=== PATIENT | male | born 1935 | race Caucasian/White ===

== ENCOUNTER 2017-12-02 16:38 | Inpatient (IN) | payer MEDICARE, OTHER ==
[~2017-12-02 16:38] MED LIST: ISOVUE-370 76%-LOCM 1 ML ONE
[2017-12-02 17:58] LABS: #Basophils 0.1 thou/uL (0.0-0.2); #Lymphocytes 0.7 thou/uL (1.20-3.40); #Monocytes 1.6 thou/uL (0.11-0.59); #Neutrophils 12.3 thou/uL (1.40-6.50); %Basophils 0.5 % (0.0-1.0); %Eosinophils 0.1 % (0.0-10.0); %Lymphocytes 4.9 % (21.0-51.0); %Monocytes 10.6 % (0.0-10.0); %Neutrophils 83.9 % (42.0-75.0); Hemoglobin 16.6 g/dL (14.0-18.0); Mean Corpuscular Hemoglobin 28.5 pg (27.0-31.0); Mean Corpuscular Volume 86.4 fl (80.0-94.0); Mean Platelet Volume 9.1 fL (7.4-10.4); Platelet Count 127 thou/uL (130-400); RBC Distribution Width 14.3 % (11.5-14.5); Red Blood Cell (RBC) Count 5.83 mill/uL (4.70-6.10); White Blood Cell (WBC) Count 14.6 thou/uL (4.8-10.8)
[2017-12-02] MEDS ORDERED: Bisacodyl 10 MG SUPP PR PRN (18:13)
[2017-12-02] MEDS ORDERED: Milk Of Magnesia 30 ML UDCUP PO SCH (18:15)
[2017-12-02 18:28] LABS: ALT (SGPT) 19 U/L (8-55); AST (SGOT) 21 U/L (5-34); Albumin 4.5 g/dL (3.4-4.8); Alkaline Phosphatase 93 U/L (40-150); Anion Gap 12 mmol/L (10-20); BUN (Urea Nitrogen) 13 mg/dL (8.4-25.7); Bilirubin, Total 1.7 mg/dL (0.2-1.2); Calc. Creatinine Clearance 65 mL/min (70-130); Calcium 10.1 mg/dL (7.8-10.44); Carbon Dioxide 25 mmol/L (23-31); Chloride 98 mmol/L (98-107); Estimated GFR-MDRD 68; Globulin 3.3 g/dL (2.4-3.5); Glucose 219 mg/dL (83-110); Protein, Total 7.8 g/dL (5.8-8.1); Sodium 131 mmol/L (136-145)
[2017-12-02] MEDS: Sodium Chloride 0.9% 1,000 ML IV SCH (18:34)
[2017-12-02] MEDS ORDERED: Acetaminophen 325 MG TAB PO SCH ×2 (18:45→21:00)
[2017-12-02] MEDS ORDERED: Meropenem 1 GM in Sodium Chloride 0.9% 100 ML IVPB SCH ×2 (18:45→22:00)
[2017-12-02 19:03] LABS: Bacteria/HPF None Seen HPF (None Seen); Hyaline Casts/LPF 0-3 HYALINE CAST LPF (0-3 Hyaline); Squamous Epithelial 0-3 HPF (0-3); WBC/HPF 0-3 HPF (0-3)
[2017-12-02] MEDS ORDERED: Rivaroxaban 10 MG TAB PO SCH (19:30)
--- NOTE | 2017-12-02 23:49 | CT ---
ABDOMEN AND PELVIC CT SCAN WITH AND WITHOUT IV CONTRAST: 12/02/17 HISTORY: 82-year-old male with abdominal pain. There are prominent linear as well as some nodular parenchymal changes in both lower lobes, worse in the right base. These linear parenchymal changes have progressed when compared to a 02/24/[address] Possibilities include progressive chronic disease versus some subsegmental atelectasis. Small hia joaquin hernia. There is a fairly markedly distended thick walled gallbladder with pericholecystic fat st randing, evidence for possibly acute cholecystitis. Consider followup ultrasound and if needed, nucle ar medicine hepatobiliary scan for further assessment in that regard. Pancreas and spleen and adrenal glands are unremarkable. No renal calculus or acute obstruction. No CT evidence for acute appendi citis. Sigmoid colon diverticulosis without acute diverticulitis. IMPRESSION: Distended gallbladder with thick wall and pericholecystic fat stranding concerning for acute cholecys titis. Linear and nodular parenchymal changes in the lung base somewhat progressive from prior study of 02/24/15. Possibly progressive chronic disease versus some acute coexistent subsegmental atelectas is. Colonic diverticulosis without diverticulitis. Small fat containing inguinal hernia. Small hiatal hernia. Other findings as above. POS: [facility]
[2017-12-03] MEDS: Acetaminophen 325 MG TAB PO SCH ×6 (01:29→20:10)
[2017-12-03] MEDS: Meropenem 1 GM in Sodium Chloride 0.9% 100 ML IVPB SCH ×3 (01:30→17:28)
--- NOTE | 2017-12-03 07:52 | HP ---
Isa Hunt, CRISTINA-Julio Cesar dictating for Dr. Quirino Walsh. DATE OF ADMISSION: 12/02/2017 REASON FOR ADMISSION: Abdominal pain. HISTORY OF PRESENT ILLNESS: This is a pleasant elderly gentleman with a history of multiple medical problems to include chronic atrial fibrillation, hypertension, and back pain with epidural steroid in jection by Dr. Rosales in 2017. He presents to the clinic with a 3-day history of abdominal pain. He s tates he has not gone to the bathroom or had a bowel movement in the last 3 days. He notes he had a fever today of 101. Therefore, presented to the clinic for further evaluation and treatment. The patient denies any chest, arm, or back pain. He also denies any PND, orthopnea, or palpitations. Subsequently, the patient is being admitted for further evaluation and treatment. PAST MEDICAL HISTORY: 1. Asthma. 2. Heel spur. 3. Irritable bowel syndrome. 4. Chronic atrial fibrillation. 5. General anxiety disorder. 6. He has back pain with history of epidural steroid injection. ALLERGIES: None. MEDICATIONS: Xarelto 10 mg every day, diltiazem 360 mg every day. SOCIAL HISTORY: Patient does not smoke or drink alcohol. FAMILY HISTORY: Noncontributory. REVIEW of SYSTEM: GENERAL: Admits to weakness, fatigue, fever, and chills. HEENT: No diplopia, am aurosis fugax, tinnitus, sore throat, or hoarseness. Cardiovascular: No chest, arm, or back pain. Pulmonary: No PE, cough, or hemoptysis. GI: See history of present illness. Genitourinary: No dy suria, nocturia, oliguria, or polyuria. Endocrine: No polyphagia, polydipsia, or heat or cold intol erance. Musculoskeletal: Admits to arthralgias. No lymphadenopathy. Neurologic: No history of TI A or seizure. All systems are negative. PHYSICAL EXAMINATION: GENERAL: Pleasant gentleman who appears to be in no acute distress. VITAL SIGNS: Blood pressure 180/100, pulse 60, respirations 20, temperature 101. HEENT: Unremarkable. Normal oropharynx. PERRLA. Sclerae are clear, nonicteric. HE had bilateral arcus senilis. There is no xanthelasma. NECK: Supple with no increased JVP or carotid bruit. Carotid had good upstroke with no thyromegaly. COR: Irregularly irregular with variable first and second heart sounds. There is no murmur, S3, S4, or thrill. CHEST: Symmetrical. Clear to auscultation and percussion. ABDOMEN: , normoactive bowel sounds. EXTREMITIES: No edema or cyanosis. He had palpable pedal pulses. SKIN: There is no evidence of ulceration, lesion, or rash. NEUROLOGIC: He is awake and alert and oriented to person, place, and time. ASSESSMENT: 1. Abdominal pain. 2. He has chronic atrial fibrillation. 3. Hypertension. 4. Febrile illness. PLAN: 1. The patient will be admitted with IV fluids. 2. Beign meropenem prophylactically. 3. We will check a CT of the abdomen. 4. Resume home medications. 5. We will make n.p.o. for now. 6. We will give antipyretics. The patient verbalized understanding. All questions answered to his satisfaction.
[2017-12-03] MEDS: Sodium Chloride 0.9% 1,000 ML IV SCH (09:36)
--- NOTE | 2017-12-03 09:46 | PRG ---
DATE OF SERVICE: 12/03/2017 SUBJECTIVE: The patient had a good night. He finally went to the bathroom this morning. He states he feels a little bit better; however, he still has right upper quadrant tenderness. His CT scan of the abdomen came back and this demonstrated he had a distended gallbladder with thick wall and perich olecystic fat concerning for acute cholecystitis. He also had some diverticulosis without diverticul itis and small hiatal hernia. His white blood cell count this morning remains elevated at 14.6, however, he does not have a tempera ture, this morning it is 98.6. Sed rate was 101. PHYSICAL EXAMINATION: GENERAL: He is awake, alert, and oriented to person, place and time. VITAL SIGNS: Blood pressure 111/60, pulse 70, respiration rate 18, afebrile. NECK: Supple increased JVP or carotid bruit. Carotid had good upstroke, no thyromegaly. COR: Irregularly irregular with variable first and second heart sound. There is no murmur or S3. CHEST: Symmetrical. Clear to auscultation and percussion. ABDOMEN: Distended, right upper quadrant tenderness. He had normoactive bowel sounds. EXTREMITIES: No edema or cyanosis. Palpable pedal pulses. SKIN: There is no evidence of ulcers lesion, or rash. NEUROLOGIC: He is awake and alert and oriented to person, place, and time. ASSESSMENT: 1. Acute cholecystitis. 2. Constipation, improved. 3. Leukocytosis. 4. Atrial fibrillation, chronic. 5. Hypertension. PLAN: The patient will be left n.p.o. We will follow up with CBC in the morning. We will continue I V antibiotics and will ask Dr. Sanders to see the patient in consultation for surgical opinion. The rosibel ness verbalized understanding. All questions answered to satisfaction. This is Isa Hunt PA-C dictating for Dr. Quirino Walsh.
--- NOTE | 2017-12-03 12:08 | CON ---
GENERAL SURGERY CONSULTATION NOTE DATE OF CONSULTATION: 12/03/2017 CHIEF COMPLAINT: Right upper quadrant abdominal pain. HISTORY OF PRESENT ILLNESS: An 82-year-old male with a 3-day history of constipation and right upper quadrant pain. No nausea or vomiting. No previous episodes. He is on Xarelto and was given at las t night for atrial fibrillation. He has not had any solid food for 3 days. PAST MEDICAL HISTORY: COPD. He is on oxygen at night, sees Dr. Conklin; atrial fibrillation, sees Zabrina Mc; history of Guillain-Commodore. PAST SURGICAL HISTORY: None. MEDICATIONS: He is on Xarelto and diltiazem. ALLERGIES: He has no known drug allergies. SOCIAL HISTORY: He is . He is retired from the . He quit smoking. No alcohol. FAMILY HISTORY: Noncontributory. PHYSICAL EXAMINATION: VITAL SIGNS: Temperature 98.6, pulse 97 and blood pressure 111/68. GENERAL: He is awake and alert, in no apparent distress. HEENT: Unremarkable. LUNGS: Clear. HEART: Regular rate and rhythm. ABDOMEN: Very tender in the right upper quadrant with positive Newton's. No hernias, no palpable ma sses. EXTREMITIES: Unremarkable. LABORATORY AND X-RAY FINDINGS: White count is 14.6, hemoglobin and hematocrit 16 and 50, platelet co unt 127. Bilirubin is elevated at 1.7. He had a CT scan showing a distended gallbladder with thicke dominic wall and pericholecystic fluid. ASSESSMENT: Acute cholecystitis, on Xarelto with oxygen-dependent chronic obstructive pulmonary dise ase. PLAN: Cardiology clearance, pulmonary clearance. If clear, would proceed with laparoscopic cholecys tectomy tomorrow. If not clear, we will recommend tube drainage of his gallbladder in Radiology.
--- NOTE | 2017-12-03 12:48 | RAD ---
SINGLE VIEW CHEST: HISTORY: COPD. Preoperative radiograph. COMPARISON: 08/10/2013 FINDINGS: A single view of the chest shows a normal sized cardiomediastinal silhouette. There is no evidence o f consolidation or pleural effusion. There may be a small calcified granuloma projecting over the le ft lower lobe. IMPRESSION: No evidence of acute cardiopulmonary disease. POS: [facility]
[2017-12-03] MEDS: Ketorolac Tromethamine 30 MG/ML VIAL IVP PRN (12:59)
[2017-12-03] MEDS ORDERED: Rivaroxaban 10 MG TAB PO SCH (17:00)
[2017-12-03] MEDS: Mometasone/Formoterol 120 PUFF INHALER INH SCH (18:52)
--- NOTE | 2017-12-03 19:11 | CON ---
DATE OF CONSULTATION: 12/03/2017 CARDIOLOGY CONSULTATION PRIMARY SHANK CARRIER: Dr. Les Mc. REASON FOR CONSULTATION: Preoperative evaluation. HISTORY OF PRESENT ILLNESS: Mr. Mcmahon is a very pleasant 82-year-old white gentleman who comes to [facility] for right upper quadrant pain. He was evaluated and a CT of the abdomen showed he had a distended gallbladder with a thick wall with pericholecystic fat stranding concerning for acute jesus alberto cystitis. General Surgery was consulted. Dr. Sanders saw him and wants to take him to the OR to do a laparoscopic cholecystectomy. He has a history of atrial fibrillation and is on Xarelto for this, so Cardiology has been asked to do a preoperative evaluation to make sure his risk of surgery is as min imal as possible. Mr. Mcmahon denies any chest pain, tightness, pressure, no shortness of breath. Dc s only complaint is right upper quadrant pain which is most likely related to his acute cholecystitis . He tells me that just 2 days ago, he was mowing his lawn doing with a push mower and he has been w orking out on his exercise machine without any symptoms whatsoever. PAST MEDICAL HISTORY: 1. Bronchial asthma. 2. History of a heel spur. 3. Irritable bowel syndrome. 4. Atrial fibrillation. 5. General anxiety disorder. 6. Chronic back pain. OUTPATIENT MEDICATIONS: 1. Cardizem 360 mg. 2. Xarelto 20 mg at bedtime. 3. Myrbetriq. ALLERGIES: No known drug allergies. SOCIAL HISTORY: No alcohol, tobacco or drugs. FAMILY HISTORY: Noncontributory. REVIEW OF SYSTEMS: A 12 point review of systems was done and is all negative unless stated in the hi story of present illness. PHYSICAL EXAMINATION: VITAL SIGNS: Temperature 98.4, pulse 96, respiratory rate 16, satting 94% on 1.5 nasal cannula, bloo d pressure 122/73. GENERAL: Awake, alert, oriented x3, in no distress. HEENT: Normocephalic, atraumatic. NECK: Supple. LUNGS: Clear. CARDIOVASCULAR: S1, S2. No S3 or S4. Irregular heart rate in the 70s. ABDOMEN: Soft, otherwise. EXTREMITIES: No edema. SKIN: Warm and dry. LABORATORY WORK: Reviewed. White count of 14, hemoglobin of 16, hematocrit 50, platelet count 127. Chemistry with sodium 131, potassium 4.0, chloride of 98, carbon dioxide 25, anion gap of 12, BUN of 13, creatinine 1.04, GFR of 68. Lactic acid was normal. Calcium was 10.1, total bilirubin 1.7. T, ALT, alkaline phosphatase were normal. Albumin of 4.5. UA was unremarkable except for 11-20 rbc's. EKG was reviewed. Chest x-ray was reviewed. Most recent echocardiogram was in 07/2016. He had a normal LV function at 50-55%, moderate left atri al enlargement, moderate MR, sclerotic aortic valve moderate TR with mildly elevated right ventricula r systolic pressures and patient was in atrial fibrillation during the study. ASSESSMENT AND PLAN: 1. Acute cholecystitis. 2. Chronic atrial fibrillation. 3. Hypertension. 4. Preoperative evaluation. PLAN: 1. He would be intermediate risk for an intermediate risk procedure. At this time, he is asymptomat ic from any coronary standpoint. He has had stresses in the distant past that were negative at least 3-4 years ago, but has not had any symptoms suggestive of ischemia. His LV function was normal abou t a year and a half ago. 2. We will plan on repeating an echocardiogram and he should be able to undergo said procedure with the understood risk caveats. 3. He has been off Xarelto since last night. We usually recommend 24-48 hours off of Xarelto before any major surgery up to Dr. Sanders as far as the timing of the procedure. Thank you for letting us to participate in the care of your patient. Dr. Mc, his primary Card iology will follow up in the morning.
--- NOTE | 2017-12-03 23:13 | CON ---
DATE OF CONSULTATION: 12/03/2017 CONSULTING PHYSICIAN: Dr. Sanders. REASON FOR CONSULTATION: Preoperative pulmonary clearance. HISTORY OF PRESENT ILLNESS: Mr. Mcmahon is an 82-year-old male who came into the hospital last night with a 3-day history of right upper quadrant abdominal pain. He has been diagnosed with acute cholec ystitis. Unfortunately, he had a dose of Xarelto recently and his surgery needs to be held for sever al hours. I have been asked to see him for preoperative pulmonary clearance. I last saw the patient in the office in 2012. He has a history of chronic bronchitis. At that time, he had normal spirometry. He is currently using oxygen at night. He is using Symbicort twice daily and albuterol and ipratropium as needed. He states he is quite active. He mowed his lawn with a pu sh mower 2 days ago. He says he continues to perform all activities of daily living. He can climb a flight of stairs without having to stop. PAST MEDICAL HISTORY: 1. Chronic bronchitis. 2. Irritable bowel syndrome. 3. Chronic atrial fibrillation requiring anticoagulation with Xarelto. 4. General anxiety. 5. Chronic back pain. MEDICATIONS PRIOR TO ADMISSION: Xarelto, diltiazem, Symbicort, albuterol and ipratropium. SOCIAL HISTORY: Nonsmoker. Does not consume alcohol. FAMILY MEDICAL HISTORY: Unremarkable. REVIEW OF SYSTEMS: Twelve-point review of systems is otherwise negative. ALLERGIES: None. PHYSICAL EXAMINATION: VITAL SIGNS: Temperature 98.6, pulse 97, respirations 16, O2 sat 94%, blood pressure 111/68. GENERAL: He is awake, alert, in no distress. HEENT: Unremarkable. NECK: Without adenopathy, JVD, or bruits. LUNGS: Clear to auscultation without wheezing or rhonchi. CARDIOVASCULAR: S1, S2 regular without murmur, rub, or gallop. ABDOMEN: Right upper quadrant tenderness and positive Newton sign. Otherwise, soft and nontender. EXTREMITIES: No clubbing, cyanosis, or edema. NEUROLOGIC: Nonfocal. SKIN: Showed no lesions. LABORATORY DATA: White blood cell count 14.6, hematocrit 50, platelet count 127. Sodium 131, potass ium 4, chloride 98, CO2 of 25, BUN 13, creatinine 1.1, glucose 219, albumin 1.7. ASSESSMENT: Chronic bronchitis with normal spirometry in the past. He has some nocturnal hypoxemia, but certainly his functional status looks well enough to where he could undergo a laparoscopic jesus alberto cystectomy without much difficulty. RECOMMENDATIONS: Proceed with surgery tomorrow as planned. I will be glad to follow up perioperativ john. I will start him on bronchodilators. I will check a preoperative x-ray.
[2017-12-04] MEDS: Sodium Chloride 0.9% 1,000 ML IV SCH ×2 (02:10→10:59)
[2017-12-04] MEDS: Meropenem 1 GM in Sodium Chloride 0.9% 100 ML IVPB SCH ×2 (02:10→09:25)
[2017-12-04] MEDS: Acetaminophen 325 MG TAB PO SCH ×6 (03:55→20:30)
[2017-12-04] MEDS: Ketorolac Tromethamine 30 MG/ML VIAL IVP PRN (04:09)
[2017-12-04 05:49] LABS: #Lymphocytes 1.3 thou/uL (1.20-3.40); #Neutrophils 10.9 thou/uL (1.40-6.50); %Basophils 0.1 % (0.0-1.0); %Eosinophils 0.1 % (0.0-10.0); %Lymphocytes 9.6 % (21.0-51.0); %Monocytes 7.8 % (0.0-10.0); %Neutrophils 82.4 % (42.0-75.0); Hemoglobin 14.4 g/dL (14.0-18.0); Mean Corpuscular Hemoglobin 28.1 pg (27.0-31.0); Mean Corpuscular Volume 87.9 fl (80.0-94.0); Mean Platelet Volume 9.4 fL (7.4-10.4); Platelet Count 118 thou/uL (130-400); RBC Distribution Width 14.1 % (11.5-14.5); Red Blood Cell (RBC) Count 5.12 mill/uL (4.70-6.10); White Blood Cell (WBC) Count 13.2 thou/uL (4.8-10.8)
[2017-12-04] MEDS: Mometasone/Formoterol 120 PUFF INHALER INH SCH ×2 (07:00→19:07)
--- NOTE | 2017-12-04 08:17 | PRG ---
DATE OF SERVICE: 12/04/2017 SUBJECTIVE: The patient had a good night. He did tolerate his liquids yesterday. He did not have a ny food as he was not hungry. He did have an echocardiogram yesterday; therefore we are waiting on c isacc from Cardiology before he has his cholecystectomy. The patient's pain appears to be under c ontrol. He denies any complaints. He did also admit to sleeping very well last night. Upon evaluat ion, he is awake, alert, and oriented to person, place and time. There is no family here today at [facility]. PHYSICAL EXAMINATION: VITAL SIGNS: Blood pressure is 130/70, pulse 100, respirations 18. His temperature was 99.7. HEENT: Unremarkable. He had bilateral arcus senilis. There is no xanthelasma. NECK: Supple, no increased JVP or carotid bruit. Carotid had good upstroke, no thyromegaly. COR: Irregularly irregular with variable first and second heart sounds. There is no murmur, S3, S4, or thrill. CHEST: Symmetrical. Clear to auscultation and percussion. ABDOMEN: Soft and tender in the right upper quadrant. He had normoactive bowel sounds. EXTREMITIES: No edema or cyanosis. He had palpable pedal pulses. SKIN: There is no evidence of ulceration, lesion or rash. NEUROLOGIC: He is awake, alert, and oriented to person, place, and time. LABORATORY DATA: His white blood cell count is slightly better at 13.2. His H&H is normal at 14.4 a nd 45.0, platelet count is slightly low at 118. His sodium is 131. His echocardiogram showed his EF to be 45-50% with mild mitral regurgitation plus his aortic valve was sclerotic. There was no evide nce of aortic valve regurgitation or stenosis. ASSESSMENT: 1. Acute cholecystitis. 2. History of chronic atrial fibrillation. 3. Hypertension. 4. Multiple medical problems. PLAN: The patient is kept n.p.o. this morning in case of surgery. The business services sales agent does recommend h im being off of Xarelto 24-48 hours before any major surgery. This was dictated by Dr. Butler. We w ill continue the same IV fluids. We will continue the same pain medication control and hopefully the patient will be having his cholecystectomy in the next 24-48 hours. The patient verbalized understa nding. All questions answered to his satisfaction.
--- NOTE | 2017-12-04 08:52 | PRG ---
DATE OF SERVICE: 12/04/2017 The patient is doing better. He is scheduled for a laparoscopic cholecystectomy later today. PHYSICAL EXAMINATION: VITAL SIGNS: Temperature 99.2, pulse 100, respiration 20, O2 sat 92%, blood pressure 117/77. HEENT: Unremarkable. NECK: No JVD. CHEST: Clear. CARDIAC: S1 and S2 regular. ABDOMEN: Soft, slightly tender right upper quadrant. EXTREMITIES: No edema. Chest x-ray was clear. ASSESSMENT: 1. Stable pulmonary status. 2. Cholecystitis. 3. Chronic bronchitis with normal spirometry in the past. PLAN: Okay from a pulmonary standpoint to proceed with surgery. We will follow perioperatively.
[2017-12-04 10:51] LABS: Hemoglobin 15.1 g/dL (14.0-18.0); Platelet Count 112 thou/uL (130-400)
[2017-12-04] MEDS ORDERED: Fentanyl 100 MCG/2 ML VIAL ONE ×5 (11:24→15:58)
[2017-12-04] MEDS ORDERED: Bupivacaine/Epinephrine 0.25% 30 ML VIAL ONE (11:26)
[2017-12-04] MEDS ORDERED: Iothalamate Meglumine 60% 50 ML VIAL FS ONE (11:26)
[2017-12-04] MEDS ORDERED: Morphine Sulfate 2 MG/ML SYRINGE SLOW IVP PRN (14:47)
[2017-12-04] MEDS ORDERED: Promethazine HCl 25 MG/ML VIAL SLOW IVP PRN (14:47)
[2017-12-04] MEDS ORDERED: Promethazine HCl 25 MG/ML VIAL IM PRN ×2 (14:47→15:10)
[2017-12-04] MEDS ORDERED: Morphine 5 MG/ML SYRINGE SLOW IVP PRN ×2 (15:10→15:45)
[2017-12-04] MEDS ORDERED: Mag-Al 1200 mg/1200 mg/30 ML UDCUP PO PRN (15:10)
[2017-12-04] MEDS ORDERED: HYDROcodone/Acetaminophen 10/325 mg Tablet PO PRN (15:10)
[2017-12-04] MEDS ORDERED: Calcium Carbonate 500 MG ChewTAB PO PRN (15:10)
[2017-12-04] MEDS ORDERED: Dextrose 5% in Water 1,000 ML IV PRN (15:10)
[2017-12-04] MEDS ORDERED: Dextrose 50% Abboject 50 ML SYRINGE SLOW IVP PRN (15:10)
[2017-12-04] MEDS ORDERED: Morphine 4 MG/ML VIAL SLOW IVP PRN (15:10)
[2017-12-04] MEDS ORDERED: Ondansetron HCl/PF 4 MG/2 ML Vial IVP PRN (15:10)
[2017-12-04] MEDS ORDERED: hydrALAZINE 20 MG/ML VIAL SLOW IVP PRN (15:10)
[2017-12-04] MEDS ORDERED: Glycopyrrolate 0.2 MG/ML 5 ML SYRINGE ONE (15:17)
[2017-12-04] MEDS ORDERED: Esmolol 100 MG/10 ML VIAL ONE (15:17)
[2017-12-04] MEDS ORDERED: PROPOFOL 200 MG/20 ML VIAL ONE (15:17)
[2017-12-04] MEDS ORDERED: Lidocaine 1% PF 5 ML VIAL ONE (15:17)
[2017-12-04] MEDS ORDERED: Ondansetron HCl/PF 4 MG/2 ML Vial ONE (15:17)
[2017-12-04] MEDS ORDERED: Ketorolac Tromethamine 30 MG/ML VIAL ONE (15:17)
--- NOTE | 2017-12-04 15:50 | RAD ---
EXAM: CHOLANGIOGRAM IN SURGERY 12/04/17 HISTORY: Lap cholecystectomy with intraoperative cholangiogram. EXPOSURE: 1.17 mGy, 0.299 Gy*cm2. 5 seconds. FINDINGS: Intraoperative fluoroscopy is provided with a single view. Cystic duct is not opacified. Contrast opa cifies what appears to be a slightly prominent common bile duct. The intrahepatic biliary system does not appear to be prominent. Passage of the contrast from the common bile duct in the duodenum is not demonstrated. IMPRESSION: Fluoroscopic views as above. POS: [facility]
[2017-12-04] MEDS: Lactated Ringer's 1,000 ML IV SCH (16:58)
[2017-12-04] MEDS: HYDROcodone/Acetaminophen 10/325 mg Tablet PO PRN (18:21)
--- NOTE | 2017-12-04 18:34 | OP ---
PREOPERATIVE DIAGNOSIS: Acute cholecystitis with elevated liver function. SURGEON: Toi Sanders M.D. PROCEDURE PERFORMED: Laparoscopic cholecystectomy with attempted cholecystectomy converted to open c holecystectomy with intraoperative cholangiogram. INDICATIONS: This is an 82-year-old male who has multiple medical problems, chronic atrial fibrillat ion. He has been on Xarelto. He has COPD on oxygen at home. I had him seen by Cardiology and Pulmo evelyn. He did have some elevation of his liver function tests. FINDINGS: A gangrenous gallbladder, full of pus. I tried to shoot a cholangiogram through the amput ated distal gallbladder, could not get anything. I had to convert to an open procedure. Cholangiogr am was done trans common duct and it showed no filling defects, but no flow into the duodenum and carl y dilated common duct. PROCEDURE IN DETAIL: After informed consent was obtained, the patient was taken to the operating franco m and given general endotracheal anesthesia. He was placed in the supine position. His abdomen was prepped and draped in usual fashion. Local anesthesia infiltrated subcutaneously and deep. Subumbil ical incision was performed. The subcu divided sharply. Fascia grasped and two stay sutures of 0 Vi cryl placed to either side of midline. Midline incised. Digital palpation revealed no local adhesio ns. A blunt 10/12 mm trocar inserted. Pneumoperitoneum was created to a pressure of 15 mmHg. Zero degree laparoscope inserted under direct vision, three 5-mm ports placed subcostally. The gallbladde r was encased with omentum and very inflamed. An aspirating needle was inserted and 100 mL of purule nt bile removed from the gallbladder. The gallbladder was grasped, advanced superiorly and dissectio n was performed. It appeared the majority of the inflammation was actually towards the shawn and it became very difficult to define anatomy, so I elected to take the gallbladder dome down and then ampu tated the gallbladder at its lower portion and tried to shoot a cholangiogram. I could not get any f low into the bile duct, so I elected to open and a subcostal incision was performed. The muscle was divided utilizing electrocautery. The posterior rectus fascia was divided with electrocautery and re traction achieved with a Bookwalter retractor. On entry, there was some bile in the abdominal cavity , which had been concerned about an injury of some sort, so I inspected the area, I could not see whe re the bile was and then I finally saw this tiny little accessory duct up by the liver that maybe I c ould shoot a cholangiogram for this, but it was about a tenth of a millimeter in diameter, so I opene d up the peritoneum and I saw this large blue structure and I was fairly sure it was the common duct, so I took a 27 gauge needle and aspirated and it was bile, so I made a pursestring, this is about 1. 5 cm in diameter, was very large. A pursestring of 6-0 Prolene was placed and an 11 blade made in th e center of it and then the cholangiocatheter inserted and the balloon inflated. Then an intraoperat ady cholangiogram was performed. This showed no filling defects, but no drainage into the duodenum. So, the catheter was removed and the pursestring tied. The accessory duct was closed with a figure- of-eight of 6-0 Prolene. The wound thoroughly irrigated, hemostasis assured. Elijah powder was plac ed in the gallbladder bed. The gallbladder had been removed. A drain was placed in the subhepatic s pace and brought out through the most lateral incision. The hemostasis assured. The posterior rectu s fascia closed with a running #1 PDS. Anterior rectus fascia closed with a running #1 PDS. Subcu i rrigated. Skin closed with skin sushma. The umbilical fascia was closed with a 2-0 Vicryl suture a nd then skin closed with skin sushma. The patient did have atrial fibrillation with a rapid ventric ular response during the case and did require Cardizem drip, but he has been on that, he has been on telemetry. Per the anesthesia, he is going to go to recovery room on the drip. We will have Cardiol ogy decide whether to keep him on that.
[2017-12-04] MEDS ORDERED: Meropenem 1 GM in Sodium Chloride 0.9% 100 ML IVPB SCH (20:15)
[2017-12-04] MEDS: Pantoprazole 40 MG VIAL IVP SCH (20:29)
[2017-12-04] MEDS: Famotidine 20 MG TAB PO SCH (20:30)
[2017-12-04] MEDS ORDERED: Famotidine/PF 20 mg/2ml Vial SLOW IVP SCH (21:00)
[2017-12-04] MEDS: Diltiazem HCl 125 MG, Admixture Fee 1 EACH in Sodium Chloride 0.9% 100 ML IVPB SCH (22:04)
[2017-12-05] MEDS: Lactated Ringer's 1,000 ML IV SCH ×4 (00:39→23:43)
[2017-12-05] MEDS: Acetaminophen 325 MG TAB PO SCH ×6 (00:59→20:41)
--- NOTE | 2017-12-05 01:13 | CON ---
DATE OF CONSULTATION: 12/04/2017 GI CONSULTATION CHIEF COMPLAINT: Abdominal pain. HISTORY OF PRESENT ILLNESS: Mr. Mcmahon is an 82-year-old man who was admitted on 12/02/2017 with rig ht upper quadrant to epigastric abdominal pain and fever. He had a CT scan that showed a distended g allbladder with thick wall and pericholecystic fat stranding. He was diagnosed with acute pancreatit is. His Xarelto was held and he underwent open cholecystectomy today, 12/04/2017. His gallbladder w as gangrenous. Intraoperative cholangiogram was performed; however, the duct was noted to be dilated and the contrast would not pass through to the duodenum. GI was consulted to evaluate for choledoch olithiasis. His bilirubin was noted to be elevated on presentation at 1.7. His other LFTs were norm al. PAST MEDICAL HISTORY: Atrial fibrillation, asthma, anxiety. PAST SURGICAL HISTORY: He had colonoscopy in 12/2015, which revealed a large 1.8-cm broad-based tubu lovillous adenoma, which was removed from the rectum. Another smaller adenoma was removed from the c ecum. Followup colonoscopy was recommended for one year and reminder letter was sent to the patient regarding this, however, he has not followed up with that procedure. FAMILY HISTORY: Negative for GI malignancies. SOCIAL HISTORY: No alcohol, tobacco, or drugs. ALLERGIES: No known drug allergies. MEDICATIONS: Prior to admission, diltiazem and Xarelto. He has previously been on MiraLax for chron ic constipation. REVIEW OF SYSTEMS: Negative x10 systems reviewed except as stated in the history of present illness. PHYSICAL EXAMINATION: VITAL SIGNS: Temperature 98.2, pulse 95, blood pressure 133/80. GENERAL: He is in no acute distress. He is alert and oriented x3. HEENT: Eyes have no scleral icterus. Oropharynx is clear without lesions. NECK: No cervical or supraclavicular lymphadenopathy. LUNGS: Clear to auscultation bilaterally. HEART: S1, S2. ABDOMEN: Soft, it is tender somewhat diffusely, more so near the incision site. His bowel sounds ar e hypoactive. EXTREMITIES: No lower extremity edema. LABORATORY DATA: Creatinine 1.04, albumin 4.5, bilirubin 1.7, AST 21, ALT 19, alkaline phosphatase 9 3. These labs are from 12/02/2017. White blood cell count was 13.2 this morning, hemoglobin 14.4, p latelets 118. IMPRESSION: 1. Acute gangrenous cholecystitis, status post open cholecystectomy. 2. Choledocholithiasis with elevated bilirubin and non-drainage of the bile duct on intraoperative c holangiogram and dilation of the bile duct. 3. 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 [facility] This will be delayed until patient is able to take a bowel prep and can be performed as an outp atient in the future. 4. History of atrial fibrillation. Xarelto has been held for a couple of days. RECOMMENDATIONS: 1. Endoscopic retrograde cholangiopancreatography tomorrow. The risks and benefits of the procedure were discussed in detail with the patient. 2. Colonoscopy. We will need to be performed in the future to follow up on the large rectal polyp, which was removed in 12/2015. This will be deferred to future date given that he just had an open ch olecystectomy for gangrenous cholecystitis today.
[2017-12-05] MEDS: Meropenem 1 GM in Sodium Chloride 0.9% 100 ML IVPB SCH ×4 (04:52→20:40)
[2017-12-05 06:01] LABS: #Lymphocytes 1.1 thou/uL (1.20-3.40); #Monocytes 0.7 thou/uL (0.11-0.59); #Neutrophils 7.6 thou/uL (1.40-6.50); %Eosinophils 0.3 % (0.0-10.0); %Lymphocytes 11.3 % (21.0-51.0); %Monocytes 7.5 % (0.0-10.0); %Neutrophils 80.9 % (42.0-75.0); Hemoglobin 12.7 g/dL (14.0-18.0); Mean Corpuscular HGB CONC 31.1 g/dL (32.0-36.0); Mean Corpuscular Hemoglobin 27.5 pg (27.0-31.0); Mean Corpuscular Volume 88.4 fl (80.0-94.0); Mean Platelet Volume 9.1 fL (7.4-10.4); Platelet Count 110 thou/uL (130-400); RBC Distribution Width 13.9 % (11.5-14.5); Red Blood Cell (RBC) Count 4.61 mill/uL (4.70-6.10); White Blood Cell (WBC) Count 9.4 thou/uL (4.8-10.8)
[2017-12-05 06:14] LABS: ALT (SGPT) 33 U/L (8-55); AST (SGOT) 46 U/L (5-34); Albumin 2.9 g/dL (3.4-4.8); Alkaline Phosphatase 72 U/L (40-150); Anion Gap 10 mmol/L (10-20); BUN (Urea Nitrogen) 22 mg/dL (8.4-25.7); Bilirubin, Direct 0.3 mg/dL (0.1-0.3); Bilirubin, Total 0.6 mg/dL (0.2-1.2); Calc. Creatinine Clearance 75 mL/min (70-130); Calcium 8.2 mg/dL (7.8-10.44); Carbon Dioxide 24 mmol/L (23-31); Chloride 105 mmol/L (98-107); Estimated GFR-MDRD 77; Globulin 2.4 g/dL (2.4-3.5); Glucose 165 mg/dL (83-110); Lipase 5 U/L (8-78); Potassium 4.4 mmol/L (3.5-5.1); Protein, Total 5.3 g/dL (5.8-8.1); Sodium 135 mmol/L (136-145)
[2017-12-05] MEDS: Diltiazem HCl 125 MG, Admixture Fee 1 EACH in Sodium Chloride 0.9% 100 ML IVPB SCH ×2 (06:56→17:20)
[2017-12-05] MEDS ORDERED: Iothalamate Meglumine 60% 50 ML VIAL FS ONE (07:14)
[2017-12-05] MEDS: Mometasone/Formoterol 120 PUFF INHALER INH SCH ×2 (07:49→18:28)
[2017-12-05] MEDS ORDERED: Promethazine HCl 25 MG/ML VIAL IM PRN (07:58)
[2017-12-05] MEDS ORDERED: Ondansetron HCl/PF 4 MG/2 ML Vial IVP PRN (07:58)
[2017-12-05] MEDS ORDERED: Promethazine HCl 25 MG/ML VIAL SLOW IVP PRN (07:58)
[2017-12-05] MEDS: Famotidine 20 MG TAB PO SCH ×2 (09:12→20:42)
[2017-12-05] MEDS ORDERED: Indomethacin 50 MG SUPP ONE (09:29)
--- NOTE | 2017-12-05 10:20 | PDOC.GSPN ---
Surgery Progress Note: Subj - Subjective Patient reports: no new complaints Narrative: Patient seen in preop and during ERCP Surgery Progress Note: Obj - Vital signs Vital signs: Vital Signs - Most Recent Temp Pulse Resp BP Pulse Ox 98 F 94 16 115/59 L 93 L 12/05/17 07:54 12/05/17 07:54 12/05/17 07:54 12/05/17 07:45 12/05/17 07:54 - Physical Exam General: no distress Respiratory: clear to auscultation Abdomen: soft, appropriately tender Wound: healing well Surgery Progress Note: Results - Labs Result Diagrams: 12/05/17 05:35 12/05/17 05:35 Lab results: Laboratory Results - last 24 hr 12/05/17 12/05/17 05:35 05:35 WBC 9.4 RBC 4.61 L Hgb 12.7 L Hct 40.7 L MCV 88.4 MCH 27.5 MCHC 31.1 L RDW 13.9 Plt Count 110 L MPV 9.1 Neutrophils % 80.9 H Neutrophils % (Manual) Not Reportable Lymphocytes % 11.3 L Monocytes % 7.5 Eosinophils % 0.3 Basophils % 0.0 Neutrophils # 7.6 H Lymphocytes # 1.1 L Monocytes # 0.7 H Eosinophils # 0.0 Basophils # 0.0 Sodium 135 L Potassium 4.4 Chloride 105 Carbon Dioxide 24 Anion Gap 10 BUN 22 Creatinine 0.94 Estimated GFR (MDRD) 77 Glucose 165 H Calcium 8.2 Total Bilirubin 0.6 Direct Bilirubin 0.3 AST 46 H ALT 33 Alkaline Phosphatase 72 Serum Total Protein 5.3 L Albumin 2.9 L Globulin 2.4 Albumin/Globulin Ratio 1.2 Lipase 5 L Surgery Progress Note: A/P - Problem (1) Acute cholecystitis Current Visit: Yes Code(s): K81.0 - ACUTE CHOLECYSTITIS Status: Acute - Plan Plan: ERCP without significant obstruction. Sphincterotomy performed. Will allow clear liquids
--- NOTE | 2017-12-05 11:02 | RAD ---
ERCP: Date: 12/05/17 HISTORY: Cholecystitis. FINDINGS/IMPRESSION: Intraoperative fluoroscopy was provided for ERCP as performed by Dr. Hendricks. Spot fluoroscopic images show endoscopic catheter overlying the right upper quadrant. There is catheterization and opacificati on of the common bile duct, which is dilated, estimated at up to 1.5 cm. No filling defects are relia dorina demonstrated. POS: [facility]
[2017-12-05] MEDS: HYDROcodone/Acetaminophen 10/325 mg Tablet PO PRN (12:38)
--- NOTE | 2017-12-05 14:55 | PRG ---
DATE OF SERVICE: 12/05/2017 SUBJECTIVE: Status post ERCP, apparently had a stricture dilated. Denies difficulty breathing. OBJECTIVE: VITAL SIGNS: Sats are 98% on 2 liters, temperature 98, blood pressure 115/69, pulse 94. CHEST: No wheezing or crackles. CARDIAC: Normal S1, S2, no gallops. ABDOMEN: Soft. LABORATORY DATA: White count 9000, H and H is 12 and 40, platelet count is low at 110. Electrolytes are normal. Gallbladder, gram negative rods. IMPRESSION: Cholecystitis, bronchitis. PLAN: Continue present treatment. We will follow.
--- NOTE | 2017-12-05 16:10 | OP ---
DATE OF PROCEDURE: 12/05/2017 PROCEDURE PERFORMED: Endoscopic retrograde cholangiopancreatography with sphincterotomy. PREOPERATIVE DIAGNOSES: Choledocholithiasis/non emptying of a dilated bile duct on occlusion cholang iogram with elevated liver test. OPERATIVE NOTE: Informed consent was obtained from the patient. He was sedated with general anesthe arian. He was placed in the prone position. The duodenoscope was advanced easily to the second portio n of the duodenum with ampulla was identified and there was good flow of bile noted. The pancreatic duct was cannulated on multiple attempts with the guidewire. The pancreatic duct was briefly injecte d with less than 1 mL of contrast. The common bile duct was then selectively cannulated and cholangi ogram revealed a dilated common bile duct to 15 mm. No filling defect was seen. There may have been a mild ampullary stenosis at the opening of the common bile duct. A large sphincterotomy was perfor med. The duct was swept with a 15 mm balloon and deflated to 12 mm to pass through the sphincterotom y. The duct was confirmed to be clear by occlusion cholangiogram. There was good flow of bile and c ontrast from the duct following sphincterotomy. The air was suctioned from the stomach and the proce dure was completed. He was noted to have an adherent white material in the stomach, which was likely medication. IMPRESSION: 1. Cholangiogram showing common bile duct and extrahepatic duct dilation to 15 mm. The intrahepatic ducts were unremarkable. There were no filling defects in the bile ducts. 2. Large sphincterotomy performed. He likely did have some papillary stenosis causing the bile duct dilation. The pancreatic duct was initially cannulated briefly with the wire and less than 1 mL co ntrast injection. 3. The common bile duct was swept with a 15 mm balloon deflated to 12 mm to pass through the sphinct erotomy. The duct was confirmed to be clear by occlusion cholangiogram. RECOMMENDATIONS: 1. Advance diet. 2. Check the liver tests in the morning.
[2017-12-05] MEDS ORDERED: PROPOFOL 200 MG/20 ML VIAL ONE (17:03)
[2017-12-05] MEDS ORDERED: Lidocaine 1% PF 5 ML VIAL ONE (17:03)
[2017-12-05] MEDS ORDERED: PHENYLEPHRINE-NS 100 MCG/ML 10 ML SYRINGE ONE (17:03)
[2017-12-05] MEDS ORDERED: Dexamethasone 20 MG/5 ML VIAL ONE (17:03)
[2017-12-05] MEDS ORDERED: Glycopyrrolate 0.2 MG/ML 5 ML SYRINGE ONE (17:03)
[2017-12-05] MEDS ORDERED: Ondansetron HCl/PF 4 MG/2 ML Vial ONE (17:03)
[2017-12-05] MEDS: Pantoprazole 40 MG VIAL IVP SCH (20:40)
[2017-12-05] MEDS: Ketorolac Tromethamine 30 MG/ML VIAL IVP PRN (20:40)
[2017-12-06] MEDS: Acetaminophen 325 MG TAB PO SCH ×6 (01:20→20:37)
[2017-12-06] MEDS: Meropenem 1 GM in Sodium Chloride 0.9% 100 ML IVPB SCH ×3 (03:23→20:34)
[2017-12-06 05:43] LABS: #Lymphocytes 0.8 thou/uL (1.20-3.40); #Monocytes 0.6 thou/uL (0.11-0.59); #Neutrophils 7.3 thou/uL (1.40-6.50); %Eosinophils 0.2 % (0.0-10.0); %Lymphocytes 9.1 % (21.0-51.0); %Monocytes 6.8 % (0.0-10.0); %Neutrophils 83.9 % (42.0-75.0); Hemoglobin 12.1 g/dL (14.0-18.0); Mean Corpuscular HGB CONC 31.5 g/dL (32.0-36.0); Mean Corpuscular Hemoglobin 28.4 pg (27.0-31.0); Mean Corpuscular Volume 90.2 fl (80.0-94.0); Mean Platelet Volume 9.4 fL (7.4-10.4); Platelet Count 146 thou/uL (130-400); RBC Distribution Width 13.9 % (11.5-14.5); Red Blood Cell (RBC) Count 4.27 mill/uL (4.70-6.10); White Blood Cell (WBC) Count 8.7 thou/uL (4.8-10.8)
[2017-12-06 05:58] LABS: ALT (SGPT) 36 U/L (8-55); AST (SGOT) 34 U/L (5-34); Albumin 3.4 g/dL (3.4-4.8); Alkaline Phosphatase 110 U/L (40-150); Anion Gap 11 mmol/L (10-20); BUN (Urea Nitrogen) 23 mg/dL (8.4-25.7); Bilirubin, Total 0.4 mg/dL (0.2-1.2); Calc. Creatinine Clearance 65 mL/min (70-130); Calcium 8.8 mg/dL (7.8-10.44); Carbon Dioxide 24 mmol/L (23-31); Chloride 101 mmol/L (98-107); Estimated GFR-MDRD 63; Globulin 2.8 g/dL (2.4-3.5); Glucose 303 mg/dL (83-110); Potassium 4.9 mmol/L (3.5-5.1); Protein, Total 6.2 g/dL (5.8-8.1); Sodium 131 mmol/L (136-145)
[2017-12-06] MEDS: Mometasone/Formoterol 120 PUFF INHALER INH SCH ×2 (07:00→18:54)
[2017-12-06] MEDS: Famotidine 20 MG TAB PO SCH (09:33)
[2017-12-06] MEDS ORDERED: Dextrose 5% in Water 1,000 ML IV PRN (10:55)
[2017-12-06] MEDS ORDERED: Dextrose 50% Abboject 50 ML SYRINGE IVP PRN (10:55)
[2017-12-06] MEDS ORDERED: Sodium Chloride 0.9% 1,000 ML IV SCH ×2 (12:00→14:15)
--- NOTE | 2017-12-06 12:07 | PRG ---
DATE OF SERVICE: 12/06/2017 SUBJECTIVE: Postop day #2, open cholecystectomy. Postop day #1, ERCP, stone extraction. The patien t is doing well, mild nausea, no vomiting. Has not been out of bed yet still on a Cardizem drip. OBJECTIVE VITAL SIGNS: He is afebrile. Vital signs are stable. ABDOMEN: Soft, minimally distended, but active bowel sounds. Dressings are all clear. [place] drain is serosanguineous. LABORATORY DATA: Sodium 131, potassium 1.12. White blood cell count is 8, hemoglobin is 12, platele t count is 146. ASSESSMENT: Postop day #2, open cholecystectomy with subsequent stone extraction. PLAN: Advance to full liquids today, if tolerates that likely GI soft tomorrow. Hopefully, off Card izem drip soon and then can mobilize and walk in the [place].
[2017-12-06] MEDS ORDERED: Phenergan/Codeine 10-6.25mg/5ml UDCUP PO PRN (13:03)
[2017-12-06] MEDS: Diltiazem HCl 125 MG, Admixture Fee 1 EACH in Sodium Chloride 0.9% 100 ML IVPB SCH (13:06)
[2017-12-06] MEDS: HYDROcodone/Acetaminophen 10/325 mg Tablet PO PRN (13:19)
--- NOTE | 2017-12-06 13:20 | PRG ---
DATE OF SERVICE: 12/06/2017 This is CRISTINA Eastman-Julio Cesar dictating for Quirino Walsh M.D. SUBJECTIVE: The patient is sitting up in the chair. He is tolerating his liquids okay. He has not had a bowel movement in the last 48 hours; however, he has just now started having a diet. His pain is under control. PHYSICAL EXAMINATION: GENERAL: He is awake, alert, and oriented to person, place and time. VITAL SIGNS: Blood pressure 127/70, pulse 90, respirations 20, afebrile. NECK: Supple with no increased JVP or carotid bruit. Carotid had goo upstroke without thyromegaly. COR: Irregularly irregular with normal first heart sound. There is no murmur, S3, S4, or thrill. CHEST: Symmetrical. Clear to auscultation and percussion. ABDOMEN: Soft, distended. Hypoactive bowel sounds. He has a [place] drain. He had well approximated in cision site, it was clean and dry. NEUROLOGIC: He is awake, alert, and oriented to person, place, and time. LABORATORY DATA: His CBC is normal. CMP shows sodium of 131. His blood sugar was 300. ASSESSMENT: 1. He has cholecystitis status post cholecystectomy. 2. Status post ERCP. 3. Chronic atrial fibrillation. 4. Hypoglycemia. PLAN: 1. We will begin checking his blood sugars a.c. and at bedtime and use sliding scale insulin per pro tocol as the patient does not have a history of diabetes. 2. The patient's culture came back which showed sensitive to meropenem; therefore, we will continue the meropenem. I have encouraged the patient to ask for pain medication and also to take deep breath and sit in the chair 3 times a day. We will follow up with CBC and CMP in the morning. The patient verbalized understanding and all questions answered to satisfaction.
--- NOTE | 2017-12-06 14:59 | RAD ---
CHEST 1 VIEW: Date: 12/06/17 HISTORY: Cough and congestion. COMPARISON: 12/03/17. FINDINGS: Cardiac silhouette is magnified and upper limits of normal in size. Pulmonary vasculature is slightly more engorged. Patchy bibasilar infiltrates have increased. Mediastinum is midline with aortic calci fication. Calcified granulomata are consistent with healed granulomatous disease. potline monitor fadia ds overlie the chest. IMPRESSION: Bibasilar infiltrates are favored to be related to increasing pulmonary vascular congestion. POS: [facility]
--- NOTE | 2017-12-06 15:01 | PRG ---
DATE OF SERVICE: 12/06/2017 SUBJECTIVE: Mr. Mcmahon is an 82-year-old gentleman who is status post ERCP, less abdominal pain. PHYSICAL EXAMINATION: VITAL SIGNS: Pulse 94, temperature 97, respirations 16, sats 95% on room air, blood pressure 120/71. CHEST: Decreased breath sounds, no wheezing. CARDIAC: Normal S1, S2. No gallops. ABDOMEN: Soft, no mass. LABORATORY DATA: Gallbladder culture is growing E. coli. White count 8000, hemoglobin and hematocri t is 12 and 38, platelet count is normal. Electrolytes are normal. IMPRESSION: Status post cholecystitis, cholecystectomy, abdominal pain, and febrile illness. PLAN: Antibiotic is sensitive to present E. coli. Continue supportive care, PT. We will follow.
--- NOTE | 2017-12-06 15:34 | PRG ---
DATE OF SERVICE: 12/06/2017 SUBJECTIVE: Mr. Mcmahon has stable abdominal discomfort around the incision site. No vomiting or oleg sea. He has had worsening cough today. OBJECTIVE: VITAL SIGNS: Temperature 97.8, pulse 145, O2 sat 96% on 2 liters. GENERAL: He has had a significant cough. HEENT: His eyes have no scleral icterus. LUNGS: Have bilateral wheezes. CARDIOVASCULAR: Tachycardic. ABDOMEN: Soft, nondistended, nontender. EXTREMITIES: No lower extremity edema. IMPRESSION: 1. Choledocholithiasis, status post endoscopic retrograde cholangiopancreatography and sphincterotom y with a clear bile duct. 2. Atrial fibrillation with rapid ventricular response and likely pulmonary vascular congestion. RECOMMENDATIONS: 1. Liver tests are normal. No further GI intervention is indicated at this time. 2. I will follow up with the primary service for further treatment of likely fluid overload related to cardiac dysrhythmia at this point.
[2017-12-06] MEDS: Albuterol Sulfate 2.5 mg/3 ml Neb NEB SCH ×3 (15:41→22:57)
[2017-12-06] MEDS ORDERED: guaiFENesin ER 600 MG TAB PO SCH ×2 (15:45→21:00)
[2017-12-06] MEDS ORDERED: Furosemide 40 MG/4 ML VIAL SLOW IVP SCH ×2 (15:45→21:15)
[2017-12-06] MEDS: Insulin Regular 300 UNITS/3 ML VIAL SC PRN (17:21)
[2017-12-06] MEDS: Diazepam 5 MG TAB PO PRN (18:10)
[2017-12-06] MEDS: Pantoprazole 40 MG VIAL IVP SCH (20:37)
[2017-12-07] MEDS: Acetaminophen 325 MG TAB PO SCH ×6 (01:55→22:19)
[2017-12-07] MEDS: Diltiazem HCl 125 MG, Admixture Fee 1 EACH in Sodium Chloride 0.9% 100 ML IVPB SCH ×2 (01:56→16:52)
[2017-12-07] MEDS: Albuterol Sulfate 2.5 mg/3 ml Neb NEB SCH ×6 (04:17→22:41)
[2017-12-07] MEDS: Meropenem 1 GM in Sodium Chloride 0.9% 100 ML IVPB SCH ×2 (04:42→13:06)
[2017-12-07 05:18] LABS: #Lymphocytes 0.5 thou/uL (1.20-3.40); #Monocytes 0.6 thou/uL (0.11-0.59); #Neutrophils 7.4 thou/uL (1.40-6.50); %Eosinophils 0.1 % (0.0-10.0); %Lymphocytes 5.3 % (21.0-51.0); %Monocytes 7.1 % (0.0-10.0); %Neutrophils 87.5 % (42.0-75.0); Hemoglobin 12.7 g/dL (14.0-18.0); Mean Corpuscular HGB CONC 32.8 g/dL (32.0-36.0); Mean Corpuscular Hemoglobin 29.1 pg (27.0-31.0); Mean Corpuscular Volume 88.8 fl (80.0-94.0); Mean Platelet Volume 9.1 fL (7.4-10.4); Platelet Count 168 thou/uL (130-400); RBC Distribution Width 13.8 % (11.5-14.5); Red Blood Cell (RBC) Count 4.38 mill/uL (4.70-6.10); White Blood Cell (WBC) Count 8.4 thou/uL (4.8-10.8)
[2017-12-07 05:30] LABS: ALT (SGPT) 30 U/L (8-55); AST (SGOT) 30 U/L (5-34); Albumin 3.6 g/dL (3.4-4.8); Alkaline Phosphatase 99 U/L (40-150); Anion Gap 15 mmol/L (10-20); BUN (Urea Nitrogen) 25 mg/dL (8.4-25.7); Bilirubin, Total 0.6 mg/dL (0.2-1.2); Calc. Creatinine Clearance 61 mL/min (70-130); Calcium 9.1 mg/dL (7.8-10.44); Carbon Dioxide 26 mmol/L (23-31); Chloride 99 mmol/L (98-107); Estimated GFR-MDRD 60; Glucose 252 mg/dL (83-110); Potassium 4.1 mmol/L (3.5-5.1); Protein, Total 6.6 g/dL (5.8-8.1); Sodium 136 mmol/L (136-145)
[2017-12-07] MEDS: Mometasone/Formoterol 120 PUFF INHALER INH SCH ×2 (06:34→18:46)
[2017-12-07] MEDS ORDERED: HYDROcodone/Acetaminophen 5/325 mg Tablet PO PRN ×2 (07:59)
[2017-12-07] MEDS ORDERED: Benzonatate 100 MG CAP PO PRN (08:02)
[2017-12-07] MEDS ORDERED: Furosemide 40 MG/4 ML VIAL SLOW IVP SCH (09:00)
[2017-12-07] MEDS: Tamsulosin HCl 0.4 MG CAP PO SCH (10:22)
[2017-12-07] MEDS: Potassium Chloride 20 MEQ TAB PO SCH (10:22)
[2017-12-07] MEDS: Furosemide 40 MG/4 ML VIAL IVP SCH (10:22)
[2017-12-07] MEDS: Benzonatate 100 MG CAP PO SCH ×2 (10:28→17:59)
--- NOTE | 2017-12-07 12:24 | ADD-PRG ---
ADDENDUM: DATE OF SERVICE: 12/06/2017 SUBJECTIVE: Mr. Mcmahon did receive breathing treatment and had an x-ray done on his chest. He appea rs much more comfortable now and his pulse is down to 100; however, he still has significant crackles and wheezes on his lungs. X-ray shows some pulmonary vascular congestion. His nurses call into the primary service, who originally ordered the x-ray and the breathing treatment. They will decide whe ther or not diuretics are indicated at this point.
--- NOTE | 2017-12-07 13:03 | PRG ---
DATE OF SERVICE: 12/07/2017 SUBJECTIVE: The patient is lying in bed today and seems in good spirits. OBJECTIVE: VITAL SIGNS: Temperature is 98.3, pulse ranged from 117-150, O2 saturation in the low 90s on 2 liter s, respiratory rate in the mid 20s and blood pressure 154/74. GENERAL: He is awake and alert and in no distress. HEENT: Unremarkable. NECK: No JVD. CARDIAC: S1 and S2. Irregularly irregular. LUNGS: Clear. ABDOMEN: Slightly protuberant. Surgical scars noted. EXTREMITIES: No edema. LABORATORY DATA: White blood cell 8.4, hematocrit 30.9 and platelet count 168. Sodium 136, potassiu m 4.1, chloride 99, CO2 of 26, BUN 25, creatinine 1.1 and glucose 252. ASSESSMENT: 1. Status post cholecystectomy. 2. Stable chronic obstructive pulmonary disease. 3. Atrial fibrillation with rapid ventricular response. PLAN: 1. Continue management of the heart rate per Cardiology. 2. Would recommend changing meropenem to Rocephin in order to save use of carbapenem for more resist ant organisms.
[2017-12-07] MEDS ORDERED: Digoxin 0.5 MG/2 ML AMP SLOW IVP SCH (14:00)
[2017-12-07] MEDS ORDERED: Furosemide 40 MG/4 ML VIAL IVP SCH (17:45)
--- NOTE | 2017-12-07 19:07 | PRG ---
DATE OF SERVICE: 12/07/2017 SUBJECTIVE: Mr. Mcmahon today has had increased heart rate. Heart rate has been in the 110s to 120s. He is currently on IV Cardizem. He is also on p.o. Cardizem. He was given a dose of digoxin 0.25 IV x1. PHYSICAL EXAMINATION: VITAL SIGNS: Blood pressure 141/84, pulse 110, temperature 97.5. LUNGS: Rhonchi, rales, and crackles bilaterally. HEART: Irregularly irregular. ABDOMEN: Soft, nontender, nondistended. EXTREMITIES: No edema. PERTINENT LABORATORY DATA: Creatinine 1.17, hemoglobin 12.7. IMPRESSION: 1. Atrial fibrillation with rapid ventricular response. 2. Recent gallbladder surgery. RECOMMENDATIONS: Mr. Mcmahon's most recent echo suggested LVEF 45%-50%. He does appear to be fluid o verloaded. Chest x-ray confirms as much yesterday. He is currently on 40 mg IV Lasix b.i.d. We sandrita l give him an additional dose of 40 mg IV x1. Continue IV Cardizem. May need to increase Cardizem v ersus adding a low-dose beta fadi.
[2017-12-07] MEDS: Pantoprazole 40 MG VIAL IVP SCH (22:19)
[2017-12-07] MEDS: cefTRIAXone\\ROCEPHIN 2 GM in Sodium Chloride 0.9% 100 ML IVPB SCH (22:19)
[2017-12-08] MEDS: Diazepam 5 MG TAB PO PRN (01:38)
[2017-12-08] MEDS: Albuterol Sulfate 2.5 mg/3 ml Neb NEB SCH ×6 (01:38→21:58)
[2017-12-08 05:32] LABS: #Basophils 0.1 thou/uL (0.0-0.2); #Monocytes 0.7 thou/uL (0.11-0.59); #Neutrophils 6.7 thou/uL (1.40-6.50); %Basophils 1.8 % (0.0-1.0); %Eosinophils 0.1 % (0.0-10.0); %Lymphocytes 11.8 % (21.0-51.0); %Monocytes 8.1 % (0.0-10.0); %Neutrophils 78.3 % (42.0-75.0); Hemoglobin 12.8 g/dL (14.0-18.0); Mean Corpuscular HGB CONC 32.7 g/dL (32.0-36.0); Mean Corpuscular Hemoglobin 28.2 pg (27.0-31.0); Mean Platelet Volume 8.5 fL (7.4-10.4); Platelet Count 197 thou/uL (130-400); RBC Distribution Width 13.8 % (11.5-14.5); Red Blood Cell (RBC) Count 4.56 mill/uL (4.70-6.10); White Blood Cell (WBC) Count 8.5 thou/uL (4.8-10.8)
[2017-12-08 05:42] LABS: Anion Gap 14 mmol/L (10-20); BUN (Urea Nitrogen) 18 mg/dL (8.4-25.7); Calc. Creatinine Clearance 78 mL/min (70-130); Carbon Dioxide 30 mmol/L (23-31); Chloride 96 mmol/L (98-107); Estimated GFR-MDRD 79; Glucose 215 mg/dL (83-110); Potassium 4.1 mmol/L (3.5-5.1); Sodium 136 mmol/L (136-145)
[2017-12-08] MEDS: Mometasone/Formoterol 120 PUFF INHALER INH SCH ×2 (06:15→21:35)
[2017-12-08] MEDS: Benzonatate 100 MG CAP PO SCH ×5 (08:07→23:15)
[2017-12-08] MEDS: Acetaminophen 325 MG TAB PO SCH ×5 (08:08→20:52)
[2017-12-08] MEDS: Meropenem 1 GM in Sodium Chloride 0.9% 100 ML IVPB SCH (08:10)
[2017-12-08] MEDS: Furosemide 40 MG/4 ML VIAL IVP SCH ×3 (08:11→20:53)
--- NOTE | 2017-12-08 08:17 | RAD ---
ABDOMEN ONE VIEW: History: Abdominal surgery. Abdomen pain. FINDINGS: Contrast material and gas are present throughout the colon. Mildly distended gas filled loops of smal l bowel are also present. Nasogastric tube is coiled over the stomach. Multiple skin staple rows are apparent. IMPRESSION: Gaseous distention of the small bowel may be related to post-operative ileus. POS: [facility]
--- NOTE | 2017-12-08 08:17 | RAD ---
ABDOMEN 1 VIEW: HISTORY: Nasogastric tube placement. COMPARISON: Earlier exam on the same date. FINDINGS: Gas and stool are present throughout the colon and rectum with some contrast material in the colon. Nasogastric tube is coiled over the stomach. Radiopaque drain overlies the right upper quadrant. Mu ltiple skin staple rows are apparent. IMPRESSION: 1. Nasogastric tube is in good radiographic position over the stomach. 2. Recent postoperative changes of the abdomen. POS: [facility]
--- NOTE | 2017-12-08 08:39 | PRG ---
DATE OF SERVICE: 12/08/2017 SUBJECTIVE: The patient had a horrible night. He did have some emesis and nausea and abdominal disc omfort. He did have a KUB; however, unfortunately this result is not dictated He did have to have a n NG tube placed to intermittent suction and unfortunately had 2 containers full of blood. He is con tinued on IV fluids. The patient is miserable. He states he is having abdominal discomfort; however , he is not short of breath. PHYSICAL EXAMINATION: GENERAL: He is awake, he seems like he is somewhat confused. VITAL SIGNS: Blood pressure 150/70, pulse 110, respiration 22. He is afebrile. NECK: Supple increased JVP or carotid bruit. Carotid had good upstroke, no thyromegaly. COR: Irregularly irregular with normal first heart sounds, no murmur, S3, S4, thrill. CHEST: Symmetrical. Clear to auscultation and percussion upper lobes. ABDOMEN: Distended, tender with hypoactive bowel sounds plus he did have a [place] drain intact and incis ion bandage on his abdomen. EXTREMITIES: No edema or cyanosis. He had palpable pedal pulses. SKIN: There is no evidence of ulcer, lesion or rash. NEUROLOGIC: He is awake, but somewhat confused. LABORATORY DATA: H&H is 12.8 and 39.2. His white blood cell is 8.5, his platelet is 197. ASSESSMENT: 1. Cholecystitis status post cholecystectomy. 2. Chronic atrial fibrillation. 3. Hypertension. 4. Fluid overload, improved. 5. Nausea, status post NG placement. 6. Possible gastrointestinal bleed. PLAN: We will continue the same current treatment for now. Dr. Sanders is following the patient. We will follow up with a CBC at 12, encouraged the patient to do his IS and get out of bed. The patient verbalized understanding. All questions answered to his satisfaction.
[2017-12-08] MEDS: Diltiazem HCl 125 MG, Admixture Fee 1 EACH in Sodium Chloride 0.9% 100 ML IVPB SCH ×2 (09:24→23:11)
[2017-12-08] MEDS: Lactated Ringer's 1,000 ML IV SCH ×2 (09:24→17:40)
--- NOTE | 2017-12-08 09:48 | CON ---
DATE OF SERVICE: 12/08/2017 Mr. Mcmahon today is feeling better. He had a Dobbhoff tube placed to suction. He has had decompress ion of his belly. PHYSICAL EXAMINATION: VITAL SIGNS: Blood pressure 156/76, pulse 110, respirations 20. LUNGS: Much improved, minimal crackles bilaterally. CARDIAC: Irregularly, irregular. ABDOMEN: Bowel sounds decreased. EXTREMITIES: No edema. PERTINENT LABS: Hemoglobin 12.8, creatinine 0.92. IMPRESSION: 1. Atrial fibrillation with rapid ventricular response. 2. Status post cholecystectomy. 3. Gastroparesis. RECOMMENDATIONS: Mr. Mcmahon is currently feeling much better today. I will continue IV Cardizem for now. Will hold off on p.o. given he is currently on NG tube to suction. We will increase Cardizem if needed. May add esmolol as well.
--- NOTE | 2017-12-08 11:14 | PRG ---
DATE OF SERVICE: 12/08/2017 SUBJECTIVE: The patient says he feels a little better today. PHYSICAL EXAMINATION: VITAL SIGNS: His temperature is 97.8, pulse 102, respirations 20, O2 sat 95% on 2 liters. He is cur rently on a Cardizem drip at 10 mg per hour. A 24-hour intake 2568 and output 4070. HEENT: Unremarkable. NECK: No JVD. LUNGS: He has few inspiratory crackles in the bases. CARDIAC: S1 and S2, irregularly irregular. ABDOMEN: Soft, distended, hypoactive bowel sounds. EXTREMITIES: No edema. LABORATORY DATA AND IMAGING DATA: White blood cell count 8.5, hematocrit 39.2, platelet count 197. Sodium 136, potassium 4.1, chloride 96, CO2 30, BUN 18, creatinine 0.9, glucose 215. Abdominal x-ray demonstrates postoperative changes. ASSESSMENT: 1. Status post open cholecystectomy for cholecystitis. 2. Atrial fibrillation. 3. Stable chronic obstructive pulmonary disease. PLAN: 1. Continue breathing treatments and low flow oxygen. 2. Continuing antibiotics. 3. Increase activity as tolerated.
[2017-12-08 13:01] LABS: Band 6 % (5-11); Eosinophils 1 % (0-10); Lymphocytes 10 % (21-51); MDiff Complete? YES; Mean Corpuscular HGB CONC 32.2 g/dL (32.0-36.0); Mean Corpuscular Hemoglobin 27.7 pg (27.0-31.0); Mean Corpuscular Volume 86.1 fl (80.0-94.0); Mean Platelet Volume 8.5 fL (7.4-10.4); Monocytes 8 % (0-10); Neutrophil 74 % (42-75); Platelet Count 190 thou/uL (130-400); RBC Morphology Normal; Red Blood Cell (RBC) Count 4.69 mill/uL (4.70-6.10); White Blood Cell (WBC) Count 8.4 thou/uL (4.8-10.8)
[2017-12-08] MEDS: Potassium Chloride 20 MEQ TAB PO SCH (13:43)
[2017-12-08] MEDS: Metoprolol Tartrate 25 MG TAB PO SCH ×2 (13:43→20:54)
[2017-12-08] MEDS: Tamsulosin HCl 0.4 MG CAP PO SCH (13:44)
[2017-12-08] MEDS: cefTRIAXone\\ROCEPHIN 2 GM in Sodium Chloride 0.9% 100 ML IVPB SCH (20:52)
[2017-12-08] MEDS: Pantoprazole 40 MG VIAL IVP SCH (20:54)
[2017-12-09] MEDS: Albuterol Sulfate 2.5 mg/3 ml Neb NEB SCH ×3 (02:19→10:23)
[2017-12-09] MEDS: Acetaminophen 325 MG TAB PO SCH ×6 (02:59→20:31)
[2017-12-09] MEDS: Lactated Ringer's 1,000 ML IV SCH ×2 (04:00→09:04)
[2017-12-09] MEDS: Benzonatate 100 MG CAP PO SCH ×3 (04:03→18:35)
[2017-12-09] MEDS: Mometasone/Formoterol 120 PUFF INHALER INH SCH ×2 (07:02→19:19)
[2017-12-09] MEDS: Furosemide 40 MG/4 ML VIAL IVP SCH ×2 (09:00→16:35)
[2017-12-09] MEDS: Tamsulosin HCl 0.4 MG CAP PO SCH ×2 (09:01→12:43)
[2017-12-09] MEDS: Potassium Chloride 20 MEQ TAB PO SCH (09:01)
[2017-12-09] MEDS: Metoprolol Tartrate 25 MG TAB PO SCH ×3 (09:01→20:31)
[2017-12-09 09:29] LABS: Anion Gap 12 mmol/L (10-20); BUN (Urea Nitrogen) 14 mg/dL (8.4-25.7); Calc. Creatinine Clearance 80 mL/min (70-130); Calcium 8.1 mg/dL (7.8-10.44); Carbon Dioxide 33 mmol/L (23-31); Chloride 95 mmol/L (98-107); Estimated GFR-MDRD 89; Glucose 181 mg/dL (83-110); Potassium 3.4 mmol/L (3.5-5.1); Sodium 137 mmol/L (136-145)
[2017-12-09 10:50] LABS: Mean Corpuscular HGB CONC 32.5 g/dL (32.0-36.0); Mean Corpuscular Volume 86.2 fl (80.0-94.0); Mean Platelet Volume 8.5 fL (7.4-10.4); Platelet Count 195 thou/uL (130-400); Red Blood Cell (RBC) Count 4.66 mill/uL (4.70-6.10); White Blood Cell (WBC) Count 9.8 thou/uL (4.8-10.8)
[2017-12-09 11:02] LABS: Band 4 % (5-11); Lymphocytes 12 % (21-51); MDiff Complete? YES; Monocytes 5 % (0-10); Neutrophil 78 % (42-75); RBC Morphology Normal; Reactive Lymphocytes 1 % (0-10)
--- NOTE | 2017-12-09 11:55 | PRG ---
DATE OF SERVICE: 12/09/2017 SUBJECTIVE: The patient appears more tachypneic this morning. He is a little more confused. He say s he has not been out of bed today. OBJECTIVE: VITAL SIGNS: On exam, temperature 97.0, pulse 75, respiration 16, O2 sat 95% on 2 liters, blood pres sure 119/64. HEENT: Unremarkable. NECK: No JVD. LUNGS: Coarse rhonchi. CARDIOVASCULAR: S1 and S2 regular. ABDOMEN: Soft, somewhat distended. EXTREMITIES: Trace edema. LABORATORY DATA: White blood cell count is 9.8, hematocrit 40, platelet count 195. Sodium 137, pota ssium 3.4, chloride 95, CO2 33, BUN 14, creatinine 0.8, glucose 181. ASSESSMENT: 1. Pulmonary edema - he has been getting LR at 125 mL per hour, but he is also been getting Lasix. I think he has probably become fluid overloaded. 2. Chronic obstructive pulmonary disease. 3. Pulmonary congestion. PLAN: 1. I want to put him on scheduled nebulization treatments. 2. Add EzPAP with nebs. 3. Stop the lactated Ringer's and continue diuresis. 4. Up in a chair.
--- NOTE | 2017-12-09 12:02 | PRG ---
DATE OF SERVICE: 12/09/2017 SUBJECTIVE: The patient reports feeling much better. He has had multiple bowel movements. He denie s any nausea. NG output has significantly decreased. PHYSICAL EXAMINATION: VITAL SIGNS: His temperature is 97, pulse is 80, blood pressure 119/64. GENERAL: He looks good. ABDOMEN: Soft, nondistended. Good bowel sounds. Incisions are healing well. ASSESSMENT: Doing well. PLAN: Discontinue NG tube, clear liquid diet.
[2017-12-09] MEDS: Diltiazem HCl 125 MG, Admixture Fee 1 EACH in Sodium Chloride 0.9% 100 ML IVPB SCH (15:02)
--- NOTE | 2017-12-09 16:30 | PDOC.CTH ---
Cardiology Progress Note - Subjective Patient with c/o SOB. "struggling to breath" Just called nurse. Tele reviewed. AFib with RVR up to 130s until 1500. Now 80s-100s. Denies CP. - ROS shortness of breath - Objective Vital Signs Temp Pulse Pulse Pulse Resp BP BP 12/09/17 15:55 97.8 F 86 26 H 12/09/17 14:19 107 H 20 12/09/17 12:27 180 H 71 112/60 12/09/17 12:00 97.5 F L 71 18 12/09/17 10:23 75 16 12/09/17 07:55 73 128/74 12/09/17 07:17 97.0 F L 80 18 12/09/17 07:15 97.0 F L 80 18 12/09/17 07:04 99 18 12/09/17 07:02 89 16 BP BP Pulse Ox Pulse Ox 12/09/17 15:55 113/59 L 95 12/09/17 14:19 97 12/09/17 12:27 96 12/09/17 12:00 112/60 99 12/09/17 10:23 95 12/09/17 07:55 12/09/17 07:17 100 12/09/17 07:15 119/64 100 12/09/17 07:04 98 12/09/17 07:02 98 Admit Weight 185 lb 8 oz Weight 182 lb 4.8 oz 12/08/17 12/09/17 12/10/17 06:59 06:59 06:59 Intake Total 2568 3340 1060 Output Total 4070 4690 1530 Balance -1502 -8470 -470 - Physical Examination General/Neuro: alert & oriented x3 Lungs: other: (Bilateral rales to mid lung) Heart: other: (IRR; tachy) Abdomen: soft Extremities: + edema B - Telemetry Telemetry Rhythm: AFib with RVR - Labs Result Diagrams: 12/09/17 08:47 12/09/17 08:47 - Assessment/Plan 1. SOB - Volume overloaded. Afternoon lasix not given yet. Called Fatemhe (nurse) and instructed to give now. CXR ordered. 2. AFib with RVR - on cardizem IV and po. Dig ordered if HR remains >120bpm. D/ W Fatemeh. No OAC or Lovenox at this time. Will d/w Dr. Mc. 3. s/p jesus alberto
[2017-12-09] MEDS ORDERED: Digoxin 0.5 MG/2 ML AMP SLOW IVP SCH (17:00)
[2017-12-09] MEDS ORDERED: Enoxaparin Sodium 80 MG/0.8 ML SYRINGE SC SCH (17:15)
--- NOTE | 2017-12-09 17:24 | RAD ---
PORTABLE AP CHEST X-RAY 12/09/17 HISTORY: Shortness of breath. COMPARISON: 12/06/17. FINDINGS: There is atelectasis present at each lung base. Patchy density at the medial right lung base has impr orldan from the prior study which may be related to either improving atelectasis or improvement in pneu monia. Calcified granuloma is again seen in the left mid lung zone. The cardiac silhouette and pulmon adriano vasculature are within normal limits for the portable technique of the study. No other interval c hange. IMPRESSION: 1. Improvement in patchy parenchymal changes at the right lung base which could be related to im provement in pneumonia or atelectasis. Minimal linear densities are present. 2. Mild atelectasis left lung base. POS: [facility]
[2017-12-09] MEDS: cefTRIAXone\\ROCEPHIN 2 GM in Sodium Chloride 0.9% 100 ML IVPB SCH (20:31)
[2017-12-09] MEDS: Pantoprazole 40 MG VIAL IVP SCH (20:32)
[2017-12-10] MEDS: Benzonatate 100 MG CAP PO SCH ×4 (00:02→17:29)
[2017-12-10] MEDS: Acetaminophen 325 MG TAB PO SCH ×6 (00:02→20:54)
[2017-12-10] MEDS: Diltiazem HCl 125 MG, Admixture Fee 1 EACH in Sodium Chloride 0.9% 100 ML IVPB SCH (04:20)
[2017-12-10] MEDS: Mometasone/Formoterol 120 PUFF INHALER INH SCH ×2 (06:20→18:47)
[2017-12-10 08:00] LABS: Anion Gap 12 mmol/L (10-20); BUN (Urea Nitrogen) 12 mg/dL (8.4-25.7); Calc. Creatinine Clearance 82 mL/min (70-130); Calcium 7.9 mg/dL (7.8-10.44); Carbon Dioxide 35 mmol/L (23-31); Chloride 93 mmol/L (98-107); Estimated GFR-MDRD 90; Glucose 168 mg/dL (83-110); Sodium 137 mmol/L (136-145)
[2017-12-10 08:11] LABS: Potassium 2.9 mmol/L (3.5-5.1)
--- NOTE | 2017-12-10 08:37 | PRG ---
DATE OF SERVICE: 12/10/2017 The patient had a decent night. He is sitting up in the chair. He denies any complaints. He has yarbrough d good bowel movements. He complains of a little bit of abdominal soreness. PHYSICAL EXAMINATION: VITAL SIGNS: Blood pressure 115/70, pulse 80, respiration 16, he is afebrile. NECK: Supple, no increased JVP or carotid bruit. Carotids had good upstroke, no thyromegaly. COR: Irregularly irregular with normal first and second heart sounds. No murmur, S3, S4. CHEST: A few wheezing. ABDOMEN: Soft, obese, distended, tender. He had normoactive bowel sounds. EXTREMITIES: No edema or cyanosis. He had palpable pedal pulses. SKIN: There is no evidence of ulcer, lesion or rash. NEUROLOGIC: He is awake, alert and oriented to person, place and time. ASSESSMENT: 1. Cholecystitis status post cholecystectomy. 2. Atrial fibrillation with rapid ventricular response. 3. Anxiety disorder. 4. Chronic bronchitis. 5. Diabetes. 6. Ileus, now improved. PLAN: The patient was started on a clear liquid diet. We will continue the same medications. We wi ll ask Physical Therapy to see the patient in consultation to see if he meets criteria for rehab.
[2017-12-10] MEDS: Furosemide 40 MG/4 ML VIAL IVP SCH ×2 (08:54→20:56)
[2017-12-10] MEDS: Metoprolol Tartrate 25 MG TAB PO SCH ×2 (08:54→20:56)
[2017-12-10] MEDS: Tamsulosin HCl 0.4 MG CAP PO SCH (08:55)
--- NOTE | 2017-12-10 09:14 | PRG ---
DATE OF SERVICE: 12/10/2017 The patient is better. He is up in a chair. PHYSICAL EXAMINATION: VITAL SIGNS: Temperature is 98.0, pulse 84, respiration 16, O2 sat 99% on 2 liters. HEENT: Unremarkable. NECK: No JVD. LUNGS: A few rhonchi scattered. CARDIAC: S1 and S2 regular. ABDOMEN: Soft. EXTREMITIES: No edema. LABORATORY DATA: Sodium 137, potassium 2.9, chloride 93, CO2 35, BUN 12, creatinine 0.8, glucose 168 . ASSESSMENT: 1. Cholecystitis. 2. Chronic obstructive pulmonary disease. 3. Polymicrobial infection from the gallbladder with Klebsiella and E. coli. PLAN: 1. Increase activity as tolerated. 2. Continue breathing treatments. 3. Convert over to oral antibiotics at any time from my standpoint. 4. Potassium has been replaced today.
[2017-12-10] MEDS: Potassium Chloride 20 MEQ TAB PO SCH (09:21)
[2017-12-10] MEDS ORDERED: Diltiazem HCl 125 MG, Admixture Fee 1 EACH in Sodium Chloride 0.9% 100 ML IVPB SCH (09:33)
--- NOTE | 2017-12-10 09:33 | PRG ---
DATE OF SERVICE: 12/10/2017 SUBJECTIVE: Mr. Mcmahon appears much better today. I last saw him on Thursday. He is seen sitting up in a chair. He is n.p.o. His G-tube was removed. He states he has been ambulating. His abdomen f eels better. Heart rate also appears more controlled. He is currently on IV Cardizem. PHYSICAL EXAMINATION: VITAL SIGNS: Blood pressure 129/60, pulse 84, temperature 98.3. LUNGS: Clear to auscultation. CARDIAC: Irregularly irregular. ABDOMEN: Soft, nontender, nondistended. EXTREMITIES: No edema. PERTINENT LABORATORY DATA: Hemoglobin 13. IMPRESSION: 1. Atrial fibrillation. 2. Status post cholecystectomy. RECOMMENDATIONS: We would continue with Lovenox 1 mcg per kilo subcu q.12 hours until he is close to being discharged. We will continue with Cardizem at 360 mg one p.o. at bedtime. May add low-dose b eta fadi therapy. Continue with rehab.
[2017-12-10 11:22] LABS: Hemoglobin 13.7 g/dL (14.0-18.0); Platelet Count 210 thou/uL (130-400)
--- NOTE | 2017-12-10 14:01 | PDOC.GSPN ---
Surgery Progress Note: Subj - Subjective Patient reports: no new complaints, tolerating liquids well Surgery Progress Note: Obj - Vital signs Vital signs: Vital Signs - Most Recent Temp Pulse Resp BP Pulse Ox 97.9 F 76 16 111/58 L 98 12/10/17 11:19 12/10/17 11:19 12/10/17 11:19 12/10/17 11:19 12/10/17 11:19 - Physical Exam General: no distress Abdomen: soft, non tender Wound: healing well Surgery Progress Note: Results - Labs Result Diagrams: 12/10/17 11:07 12/10/17 11:07 Lab results: Laboratory Results - last 24 hr 12/10/17 12/10/17 12/10/17 05:49 06:30 10:45 Hgb Hct Plt Count Sodium 137 Potassium 2.9 L* Chloride 93 L Carbon Dioxide 35 H Anion Gap 12 BUN 12 Creatinine 0.82 Estimated GFR (MDRD) 90 Glucose 168 H POC Glucose 196 H 228 H Calcium 7.9 12/10/17 12/10/17 11:07 11:07 Hgb 13.7 L Hct 42.6 Plt Count 210 Sodium Potassium Chloride Carbon Dioxide Anion Gap BUN Creatinine 0.84 Estimated GFR (MDRD) 87 Glucose POC Glucose Calcium Surgery Progress Note: A/P - Problem (1) Acute cholecystitis Current Visit: Yes Code(s): K81.0 - ACUTE CHOLECYSTITIS Status: Acute Assessment and Plan: advance diet
[2017-12-10 15:24] LABS: Potassium 3.6 mmol/L (3.5-5.1)
[2017-12-10] MEDS: cefTRIAXone\\ROCEPHIN 2 GM in Sodium Chloride 0.9% 100 ML IVPB SCH (20:54)
[2017-12-10] MEDS: Enoxaparin Sodium 80 MG/0.8 ML SYRINGE SC SCH (20:55)
[2017-12-10] MEDS: Pantoprazole 40 MG VIAL IVP SCH (20:56)
[2017-12-11] MEDS: Acetaminophen 325 MG TAB PO SCH ×4 (00:31→13:44)
[2017-12-11] MEDS: Benzonatate 100 MG CAP PO SCH ×3 (00:31→13:41)
[2017-12-11 05:48] LABS: Band 4 % (5-11); Hemoglobin 13.7 g/dL (14.0-18.0); Lymphocytes 11 % (21-51); MDiff Complete? YES; Mean Corpuscular HGB CONC 32.4 g/dL (32.0-36.0); Mean Corpuscular Volume 86.4 fl (80.0-94.0); Mean Platelet Volume 9.5 fL (7.4-10.4); Monocytes 8 % (0-10); Neutrophil 76 % (42-75); Platelet Count 204 thou/uL (130-400); RBC Distribution Width 14.1 % (11.5-14.5); Reactive Lymphocytes 1 % (0-10); White Blood Cell (WBC) Count 9.3 thou/uL (4.8-10.8)
[2017-12-11 05:55] LABS: ALT (SGPT) 27 U/L (8-55); AST (SGOT) 27 U/L (5-34); Albumin 3.4 g/dL (3.4-4.8); Alkaline Phosphatase 89 U/L (40-150); Anion Gap 14 mmol/L (10-20); BUN (Urea Nitrogen) 13 mg/dL (8.4-25.7); Bilirubin, Total 0.5 mg/dL (0.2-1.2); Calc. Creatinine Clearance 60 mL/min (70-130); Calcium 8.2 mg/dL (7.8-10.44); Carbon Dioxide 35 mmol/L (23-31); Chloride 90 mmol/L (98-107); Estimated GFR-MDRD 77; Globulin 2.7 g/dL (2.4-3.5); Glucose 181 mg/dL (83-110); Potassium 3.2 mmol/L (3.5-5.1); Protein, Total 6.1 g/dL (5.8-8.1); Sodium 136 mmol/L (136-145)
[2017-12-11] MEDS: Mometasone/Formoterol 120 PUFF INHALER INH SCH (06:07)
[2017-12-11 08:15] VITALS: BMI 27.1
[2017-12-11] MEDS: Enoxaparin Sodium 80 MG/0.8 ML SYRINGE SC SCH (08:26)
[2017-12-11] MEDS: Tamsulosin HCl 0.4 MG CAP PO SCH (08:27)
[2017-12-11] MEDS: Metoprolol Tartrate 25 MG TAB PO SCH (08:27)
[2017-12-11] MEDS: Furosemide 40 MG/4 ML VIAL IVP SCH (08:28)
[2017-12-11] MEDS ORDERED: Potassium Chloride 20 MEQ TAB PO SCH (09:00)
--- NOTE | 2017-12-11 09:46 | PRG ---
DATE OF SERVICE: 12/11/2017 Mr. Mcmahon appears to slowly be improving. His heart rate also is improved. He is currently on p.o. Cardizem in addition to a p.o. beta fadi therapy. He has been ambulating. PHYSICAL EXAMINATION: VITAL SIGNS: Blood pressure 110/74, pulse 95, temperature 97.9. LUNGS: Rhonchi, rales bilaterally. CARDIAC: Irregularly, irregular. ABDOMEN: Soft, nontender, nondistended. EXTREMITIES: No significant edema. PERTINENT LABORATORY DATA: Hemoglobin 13.7, creatinine 0.9. IMPRESSION: 1. Atrial fibrillation. 2. Status post cholecystectomy. 3. Chronic obstructive pulmonary disease. RECOMMENDATIONS: 1. Continue beta fadi therapy and calcium channel blockade. 2. Ambulate. 3. Convert Lovenox to Xarelto prior to discharge. 4. Rehab.
--- NOTE | 2017-12-11 10:40 | PRG ---
DATE OF SERVICE: 12/11/2017 SUBJECTIVE: He is doing well, had no complaints today. PHYSICAL EXAMINATION: VITAL SIGNS: On exam, temperature is 97.9, pulse 95, respirations 20, O2 sat 96% on 2 liters, blood pressure 110/74. HEENT: Unremarkable. NECK: No JVD. LUNGS: Clear. CARDIAC: S1 and S2, regular. ABDOMEN: Wounds are healing well. EXTREMITIES: No edema. LABORATORY DATA: White blood cell count 9.3, hematocrit 42.3, platelet count 204. Sodium 136, potas sium 3.2, BUN 13, creatinine 0.9, glucose 181. ASSESSMENT: 1. Chronic obstructive pulmonary disease, which is clinically stable and seems at baseline. 2. Atrial fibrillation. 3. Status post open cholecystectomy. PLAN: He looks stable for transfer to rehab at any time. He is continuing nebulization therapy and incentive spirometry.
[2017-12-11] MEDS: Insulin Regular 300 UNITS/3 ML VIAL SC PRN (13:42)
[2017-12-11 19:48] VITALS: BP 107/64; TEMP 98.5
== END 2017-12-11 16:00 | DRG 414 ==
LOC: 2SW 16:38 → OBSVTOIN 12-03 10:42 → 2NO 12-04 15:57
PROVIDERS: ADMIT Specialist; ATTEND Specialist
PROC: 0FT40ZZ Resection of Gallbladder, Open Approach (ICD-10-PCS; principal; 2017-12-04)
PROC: 0FJ44ZZ Inspection of Gallbladder, Percutaneous Endoscopic Approach (ICD-10-PCS; 2017-12-04)
PROC: BF100ZZ Fluoroscopy of Bile Ducts using High Osmolar Contrast (ICD-10-PCS; 2017-12-04)
PROC: 0F798ZZ Dilation of Common Bile Duct, Via Natural or Artificial Opening Endoscopic (ICD-10-PCS; 2017-12-05)
PROC: BF110ZZ Fluoroscopy of Biliary and Pancreatic Ducts using High Osmolar Contrast (ICD-10-PCS; 2017-12-05)
DX: K81.0 Acute cholecystitis (principal); K83.1 Obstruction of bile duct; E87.70 Fluid overload, unspecified; E11.65 Type 2 diabetes mellitus with hyperglycemia; K56.7 Ileus, unspecified; Q44.5 Other congenital malformations of bile ducts; K92.2 Gastrointestinal hemorrhage, unspecified; I48.2 Chronic atrial fibrillation; J44.9 Chronic obstructive pulmonary disease, unspecified; Z79.01 Long term (current) use of anticoagulants; Z53.31 Laparoscopic surgical procedure converted to open procedure; F41.1 Generalized anxiety disorder; E11.9 Type 2 diabetes mellitus without complications; K59.00 Constipation, unspecified; Z87.19 Personal history of other diseases of the digestive system; R09.02 Hypoxemia; K58.9 Irritable bowel syndrome, unspecified; Z99.81 Dependence on supplemental oxygen
CPT/HCPCS: 36415; 36416; 47532; 71045; 71046; 74018; 74178; 74330; 80048; 80053; 80076; 81015; 82565; 83605; 83690; 85014; 85018; 85025; 85049; 87040; 87070; 87077; 87086; 87186; 87205; 88304; 93306; 94640; 94664; J2270; A4216; C9113; G8978-GP-CK; G8979-GP-CI; G8987-GO-CK; G8988-GO-CI; J0131; J0696; J1100; J1160; J1610; J1650; J1815; J1885; J1940; J2001; J2185; J2405; J2550; J2704; J3010; J3480; J7050; J7611; J7620; Q9961; S0028

== ENCOUNTER 2018-03-15 12:40 | Emergency (ER) | payer MEDICARE, OTHER ==
--- NOTE | 2018-03-15 13:12 | RAD ---
THREE VIEWS RIGHT ANKLE: Date: 03-15-18 Comparison: None. History: Fall, trauma, pain. FINDINGS: There is a mildly displaced transverse fracture through the lateral malleolus, best seen on oblique i mage (2-3). There is lateral soft tissue swelling. The talar dome and ankle mortise appears intact. N o dislocation. There is enthesophyte formation at the origin of the plantar aponeurosis and insertion of the Achilles tendon. IMPRESSION: Distal right fibular fracture. POS: VIDAL
[2018-03-15] MEDS ORDERED: Acetaminophen/Codeine 30-300mg Tablet ONE (18:01)
[2018-03-15] MEDS ORDERED: Ibuprofen 200 MG TAB ONE (18:02)
== END 2018-03-15 19:04 | disposition home or self-care (01) ==
LOC: ERS 12:40
DX: S82.831A Other fracture of upper and lower end of right fibula, initial encounter for closed fracture (principal); I49.9 Cardiac arrhythmia, unspecified; I48.91 Unspecified atrial fibrillation; I10 Essential (primary) hypertension; Z79.899 Other long term (current) drug therapy; X50.1XXA Overexertion from prolonged static or awkward postures, initial encounter; Y92.009 Unspecified place in unspecified non-institutional (private) residence as the place of occurrence of the external cause

== ENCOUNTER 2019-05-11 13:09 | Outpatient (CLI) | payer MEDICARE, OTHER ==
--- NOTE | 2019-05-11 13:38 | RAD ---
EXAM: Chest 2 views: HISTORY: Shortness of breath COMPARISON: 12/09/2017 FINDINGS: Stable linear parenchymal changes in the right infrahilar region and right base and left costophrenic angle. Stable old granuloma calcification on the left. Heart size:Within normal limits. Lungs:Clear of acute process. Atherosclerotic changes of the aorta. No confluent pneumonia, overt edema, pleural effusion, pneumothorax, or other significant acute proce ss. IMPRESSION: Stable findings. Atherosclerosis of the aorta. No acute intrathoracic disease.
== END 2019-05-11 13:10 | disposition home or self-care (01) ==
LOC: RAD 13:09
PROVIDERS: ATTEND Internal Medicine Critical Care Medicine
DX: R06.00 Dyspnea, unspecified (principal); I70.0 Atherosclerosis of aorta
CPT/HCPCS: 71046

== ENCOUNTER 2019-07-19 06:55 | Outpatient (CLI) | payer MEDICARE, OTHER ==
--- NOTE | 2019-07-19 07:34 | ULT ---
Sonogram abdomen complete HISTORY: Upper abdomen pain. FINDINGS: Gallbladder surgically absent. Common duct is 1.0 cm. Liver has a heterogeneous echotexture . No focal mass. Mild distention of the intrahepatic biliary system is nonspecific in the setting of remote cholecystectomy. No free fluid. The spleen, kidneys, and visualized portions of the abdomin al aorta, IVC, and pancreas are unremarkable. IMPRESSION: Status post cholecystectomy. No acute abnormalities are demonstrated.
== END 2019-07-19 06:56 | disposition home or self-care (01) ==
LOC: BICULT 06:55
PROVIDERS: ATTEND Specialist
DX: R10.11 Right upper quadrant pain (principal); Z90.49 Acquired absence of other specified parts of digestive tract
CPT/HCPCS: 93975

== ENCOUNTER 2021-02-11 13:04 | Outpatient (CLI) | payer MEDICARE, OTHER ==
[2021-02-12 11:14] LABS: SARS-CoV-2 PCR by NAA Not Detected (NotDetected)
== END 2021-02-11 13:05 | disposition home or self-care (01) ==
LOC: LABBT 13:04
PROVIDERS: ATTEND Internal Medicine Gastroenterology
DX: Z01.812 Encounter for preprocedural laboratory examination (principal); D12.6 Benign neoplasm of colon, unspecified; R19.4 Change in bowel habit; Z20.822 Contact with and (suspected) exposure to COVID-19
CPT/HCPCS: U0003; U0005

== ENCOUNTER 2021-02-14 07:02 | Day surgery (SDC) | payer MEDICARE, OTHER ==
[2021-02-13 09:39] VITALS: BMI 25.9
[2021-02-14] MEDS ORDERED: Lidocaine 1% PF 5 ML VIAL ONE (08:56)
[2021-02-14] MEDS ORDERED: PHENYLEPHRINE-NS 100 MCG/ML 10 ML SYRINGE ONE (08:56)
[2021-02-14] MEDS ORDERED: PROPOFOL 200 MG/20 ML VIAL ONE (08:56)
[2021-02-14] MEDS ORDERED: ePHEDrine Sulfate 50 MG/10 ML VIAL ONE (08:56)
== END 2021-02-14 10:00 | disposition home or self-care (01) ==
LOC: SDC 07:02
PROVIDERS: ATTEND Internal Medicine Gastroenterology
PROC: 0D5P8ZZ Destruction of Rectum, Via Natural or Artificial Opening Endoscopic (ICD-10-PCS; principal; 2021-02-14)
PROC: 3E0H87Z Introduction of Electrolytic and Water Balance Substance into Lower GI, Via Natural or Artificial Opening Endoscopic (ICD-10-PCS; 2021-02-14)
DX: D12.8 Benign neoplasm of rectum (principal); K57.31 Diverticulosis of large intestine without perforation or abscess with bleeding; J45.909 Unspecified asthma, uncomplicated; I48.91 Unspecified atrial fibrillation; E11.9 Type 2 diabetes mellitus without complications; I10 Essential (primary) hypertension; E78.00 Pure hypercholesterolemia, unspecified; E78.5 Hyperlipidemia, unspecified; Z86.010 Personal history of colon polyps; Z79.01 Long term (current) use of anticoagulants; Z79.84 Long term (current) use of oral hypoglycemic drugs; Z79.899 Other long term (current) drug therapy
CPT/HCPCS: 88305; J2704

== ENCOUNTER 2021-07-24 18:37 | Inpatient (IN) | payer MEDICARE, OTHER ==
[2021-07-24 19:25] LABS: Hemoglobin 16.5 g/dL (14.0-18.0); Mean Corpuscular HGB CONC 34.2 g/dL (32.0-36.0); Mean Corpuscular Hemoglobin 29.7 pg (27.0-31.0); Mean Corpuscular Volume 86.8 fL (78.0-98.0); Mean Platelet Volume 9.7 fL (7.4-10.4); Platelet Count 232 thou/uL (130-400); RBC Distribution Width 13.8 % (11.5-14.5); Red Blood Cell (RBC) Count 5.57 mill/uL (4.70-6.10); White Blood Cell (WBC) Count 14.7 thou/uL (4.8-10.8)
[2021-07-24 19:40] LABS: ALT (SGPT) 41 U/L (8-55); AST (SGOT) 40 U/L (5-34); Albumin 3.7 g/dL (3.4-4.8); Alkaline Phosphatase 77 U/L (40-110); Anion Gap 19 mmol/L (10-20); BUN (Urea Nitrogen) 25 mg/dL (8.4-25.7); Bilirubin, Total 0.8 mg/dL (0.2-1.2); CRP (Inflammatory) 0.58 mg/dL (= or < 0.5); Calc. Creatinine Clearance 0 mL/min (70-130); Calcium 9.8 mg/dL (7.8-10.44); Carbon Dioxide 19 mmol/L (23-31); Chloride 92 mmol/L (98-107); Glucose 470 mg/dL (83-110); Potassium 5.5 mmol/L (3.5-5.1); Protein, Total 6.7 g/dL (5.8-8.1); Sodium 124 mmol/L (136-145)
[2021-07-24 19:42] LABS: Band 12 % (5-11); Lymphocytes 3 % (21-51); MDiff Complete? YES; Monocytes 5 % (0-10); Neutrophil 80 % (42-75); Platelet Morphology Comment Appears Adequate; RBC Morphology Normal
[2021-07-24] MEDS ORDERED: Insulin Regular 300 UNITS/3 ML VIAL ONE (19:48)
[2021-07-24] MEDS ORDERED: Vancomycin 1 GM/200 ML BAG ONE (19:48)
[2021-07-24] MEDS ORDERED: Diltiazem 125 MG in Sodium Chloride 0.9% 100 ML IVPB SCH (20:00)
[2021-07-24] MEDS ORDERED: Piperacillin/Tazobactam 4.5 GM in Sodium Chloride 0.9% 100 ML IVPB SCH (20:00)
[2021-07-24] MEDS ORDERED: Vancomycin 1 GM in Premix Bag 1 BAG IVPB SCH (20:15)
[2021-07-24] MEDS ORDERED: Diltiazem 125 MG/25 ML ONE (20:16)
[2021-07-24 21:16] LABS: Bilirubin Negative (Negative); Blood, Urine Negative (Negative); Clarity Extra Turbid (Clear); Glucose, Urine (Dipstick) Greater than 1000 mg/dL (Negative); Ketone, Urine Negative (Negative); Leukocyte Negative Leu/uL (Negative); Nitrite Negative (Negative); Protein, Urine (Dipstick) 20 mg/dL (Neg-Trace); Specific Gravity, Urine 1.022 (1.002-1.036); Urobilinogen Normal mg/dL (Less than 2)
[2021-07-24 22:21] LABS: Lactic Acid 2.7 mmol/L (0.5-2.2)
[2021-07-24 22:38] LABS: Troponin I 0.019 ng/mL (< 0.028)
[2021-07-24 22:54] LABS: SARS-CoV-2 NAA Rapid Test DETECTED (NotDetected)
[2021-07-24] MEDS ORDERED: Sodium Chloride 0.9% 1,000 ML IV SCH (23:45)
[2021-07-25 00:14] VITALS: BMI 23.3
[2021-07-25 01:34] LABS: Troponin I 0.027 ng/mL (< 0.028)
[2021-07-25] MEDS ORDERED: Dextrose 50% Abboject 50 ML SYRINGE IVP PRN (02:00)
[2021-07-25] MEDS ORDERED: Dextrose 5% in Water 1,000 ML IV PRN (02:00)
[2021-07-25] MEDS: HumaLOG 300 UNITS/3 ML VIAL SC PRN ×5 (02:24→20:06)
[2021-07-25] MEDS ORDERED: Ondansetron PF 4 MG/2 ML Vial IVP PRN (10:25)
[2021-07-25] MEDS ORDERED: REMDESIVIR 200 MG in Sodium Chloride 0.9% 250 ML 210 ML IV SCH (10:30)
[2021-07-25 10:39] LABS: Hemoglobin 15.4 g/dL (14.0-18.0); Mean Corpuscular HGB CONC 34.3 g/dL (32.0-36.0); Mean Corpuscular Hemoglobin 29.4 pg (27.0-31.0); Mean Corpuscular Volume 85.6 fL (78.0-98.0); Mean Platelet Volume 9.2 fL (7.4-10.4); Platelet Count 218 thou/uL (130-400); RBC Distribution Width 13.6 % (11.5-14.5); Red Blood Cell (RBC) Count 5.25 mill/uL (4.70-6.10); White Blood Cell (WBC) Count 9.3 thou/uL (4.8-10.8)
[2021-07-25 10:52] LABS: Anion Gap 12 mmol/L (10-20); BUN (Urea Nitrogen) 18 mg/dL (8.4-25.7); CRP (Inflammatory) 1.77 mg/dL (= or < 0.5); Calc. Creatinine Clearance 48 mL/min (70-130); Calcium 9.5 mg/dL (7.8-10.44); Carbon Dioxide 24 mmol/L (23-31); Chloride 98 mmol/L (98-107); Glucose 220 mg/dL (83-110); Potassium 4.5 mmol/L (3.5-5.1); Sodium 129 mmol/L (136-145)
[2021-07-25] MEDS ORDERED: Docusate 100 MG CAP PO PRN (11:14)
[2021-07-25 11:41] LABS: Band 1 % (5-11); Large Platelets SLIGHT; Lymphocytes 4 % (21-51); MDiff Complete? YES; Monocytes 10 % (0-10); Neutrophil 85 % (42-75); Platelet Morphology Comment PLT clumps seen-ADEQ; Vacuoles SLIGHT
[2021-07-25 11:43] LABS: Hemoglobin A1c 7.9 % (4.0-6.0)
[2021-07-25] MEDS: Benzonatate 100 MG CAP PO SCH ×3 (12:31→20:05)
[2021-07-25] MEDS: Albuterol 200 PUFF (6.7GM INHALER) INH SCH ×2 (13:34→16:56)
[2021-07-25] MEDS: Mometasone Furoate 30 PUFF 220 MCG INH SCH (16:55)
[2021-07-25] MEDS: Acetaminophen 325 MG TAB PO PRN (18:01)
[2021-07-25] MEDS: Zolpidem Tartrate 5 MG TAB PO SCH (20:04)
[2021-07-25] MEDS: Hydroxychloroquine Sulfate 200 MG TAB PO SCH (20:05)
[2021-07-26] MEDS: Diltiazem HCl 125 MG, Admixture Fee 1 EACH in Sodium Chloride 0.9% 100 ML IVPB SCH (00:47)
[2021-07-26] MEDS: Benzonatate 100 MG CAP PO SCH ×4 (06:04→17:55)
[2021-07-26] MEDS: HumaLOG 300 UNITS/3 ML VIAL SC PRN (06:18)
[2021-07-26] MEDS: Albuterol 200 PUFF (6.7GM INHALER) INH SCH ×4 (06:26→18:03)
[2021-07-26] MEDS: Azithromycin 250 MG TAB PO SCH (08:53)
[2021-07-26] MEDS: Hydroxychloroquine Sulfate 200 MG TAB PO SCH ×2 (08:53→20:14)
[2021-07-26] MEDS: Aspirin 325 mg Enteric Coated Tablet PO SCH (08:53)
[2021-07-26] MEDS: Dexamethasone 4 MG TAB PO SCH (08:53)
[2021-07-26] MEDS: Apixaban 5 MG TAB PO SCH (08:53)
[2021-07-26] MEDS ORDERED: BARICITINIB 2 MG TAB PO SCH (09:00)
[2021-07-26] MEDS ORDERED: REMDESIVIR 100 MG in Sodium Chloride 0.9% 250 ML 230 ML IV SCH (10:30)
[2021-07-26 11:17] LABS: Mean Corpuscular HGB CONC 34.4 g/dL (32.0-36.0); Mean Corpuscular Hemoglobin 29.8 pg (27.0-31.0); Mean Corpuscular Volume 86.7 fL (78.0-98.0); Mean Platelet Volume 9.1 fL (7.4-10.4); Platelet Count 232 thou/uL (130-400); RBC Distribution Width 13.6 % (11.5-14.5); Red Blood Cell (RBC) Count 5.37 mill/uL (4.70-6.10); White Blood Cell (WBC) Count 9.4 thou/uL (4.8-10.8)
[2021-07-26 11:36] LABS: Anion Gap 13 mmol/L (10-20); BUN (Urea Nitrogen) 16 mg/dL (8.4-25.7); CRP (Inflammatory) 0.76 mg/dL (= or < 0.5); Calc. Creatinine Clearance 63 mL/min (70-130); Calcium 9.3 mg/dL (7.8-10.44); Carbon Dioxide 24 mmol/L (23-31); Chloride 99 mmol/L (98-107); Glucose 169 mg/dL (83-110); Potassium 4.5 mmol/L (3.5-5.1); Sodium 131 mmol/L (136-145)
[2021-07-26 11:59] LABS: Band 2 % (5-11); Lymphocytes 6 % (21-51); MDiff Complete? YES; Monocytes 6 % (0-10); Neutrophil 84 % (42-75); Platelet Morphology Comment Appears Adequate; Reactive Lymphocytes 2 % (0-10)
[2021-07-26] MEDS ORDERED: Empagliflozin 10 MG TAB PO SCH (12:00)
[2021-07-26] MEDS: Mometasone Furoate 30 PUFF 220 MCG INH SCH ×2 (13:55→17:55)
[2021-07-26] MEDS ORDERED: Digoxin 0.5 MG/2 ML AMP SLOW IVP SCH (18:00)
[2021-07-26] MEDS: Insulin Regular 300 UNITS/3 ML VIAL SC PRN (18:00)
[2021-07-26] MEDS: Zolpidem Tartrate 5 MG TAB PO SCH (20:14)
[2021-07-27] MEDS: Benzonatate 100 MG CAP PO SCH ×5 (01:15→23:37)
[2021-07-27] MEDS: Diltiazem HCl 125 MG, Admixture Fee 1 EACH in Sodium Chloride 0.9% 100 ML IVPB SCH (04:17)
[2021-07-27 05:48] LABS: #Lymphocytes 0.5 thou/uL (1.20-3.40); #Monocytes 0.3 thou/uL (0.11-0.59); #Neutrophils 7.9 thou/uL (1.40-6.50); %Eosinophils 0.1 % (0.0-10.0); %Lymphocytes 5.3 % (21.0-51.0); %Monocytes 2.9 % (0.0-10.0); %Neutrophils 91.8 % (42.0-75.0); Hemoglobin 16.8 g/dL (14.0-18.0); Mean Corpuscular HGB CONC 32.9 g/dL (32.0-36.0); Mean Corpuscular Hemoglobin 28.6 pg (27.0-31.0); Mean Platelet Volume 9.2 fL (7.4-10.4); Platelet Count 264 thou/uL (130-400); RBC Distribution Width 13.6 % (11.5-14.5); Red Blood Cell (RBC) Count 5.87 mill/uL (4.70-6.10); White Blood Cell (WBC) Count 8.6 thou/uL (4.8-10.8)
[2021-07-27 06:13] LABS: ALT (SGPT) 35 U/L (8-55); AST (SGOT) 40 U/L (5-34); Albumin 3.4 g/dL (3.4-4.8); Alkaline Phosphatase 69 U/L (40-110); Anion Gap 16 mmol/L (10-20); BUN (Urea Nitrogen) 25 mg/dL (8.4-25.7); CRP (Inflammatory) 0.55 mg/dL (= or < 0.5); Calc. Creatinine Clearance 49 mL/min (70-130); Calcium 9.6 mg/dL (7.8-10.44); Carbon Dioxide 19 mmol/L (23-31); Chloride 102 mmol/L (98-107); Globulin 3.5 g/dL (2.4-3.5); Glucose 188 mg/dL (83-110); Potassium 5.2 mmol/L (3.5-5.1); Protein, Total 6.9 g/dL (5.8-8.1); Sodium 132 mmol/L (136-145)
[2021-07-27] MEDS: Albuterol 200 PUFF (6.7GM INHALER) INH SCH ×4 (07:33→20:54)
[2021-07-27] MEDS: Aspirin 325 mg Enteric Coated Tablet PO SCH (08:39)
[2021-07-27] MEDS: Dexamethasone 4 MG TAB PO SCH (08:39)
[2021-07-27] MEDS: Apixaban 5 MG TAB PO SCH (08:39)
[2021-07-27] MEDS: Hydroxychloroquine Sulfate 200 MG TAB PO SCH ×2 (08:40→20:52)
[2021-07-27] MEDS: Azithromycin 250 MG TAB PO SCH (08:40)
[2021-07-27] MEDS ORDERED: Empagliflozin 10 MG TAB PO SCH ×2 (09:00→11:15)
[2021-07-27] MEDS: Insulin Regular 300 UNITS/3 ML VIAL SC PRN ×2 (11:55→17:37)
[2021-07-27] MEDS: Acetaminophen 325 MG TAB PO PRN (16:25)
[2021-07-27] MEDS: Mometasone Furoate 30 PUFF 220 MCG INH SCH (17:33)
[2021-07-27] MEDS ORDERED: Albuterol 200 PUFF (6.7GM INHALER) INH SCH (20:30)
[2021-07-27] MEDS: Zolpidem Tartrate 5 MG TAB PO SCH (20:53)
[2021-07-27] MEDS: HumaLOG 300 UNITS/3 ML VIAL SC PRN (20:59)
[2021-07-28] MEDS: Benzonatate 100 MG CAP PO SCH ×3 (06:28→17:19)
[2021-07-28] MEDS: Albuterol 200 PUFF (6.7GM INHALER) INH SCH ×4 (06:29→20:17)
[2021-07-28] MEDS: Hydroxychloroquine Sulfate 200 MG TAB PO SCH ×2 (08:29→20:16)
[2021-07-28] MEDS: Azithromycin 250 MG TAB PO SCH (08:29)
[2021-07-28] MEDS: Apixaban 5 MG TAB PO SCH (08:30)
[2021-07-28] MEDS: Dexamethasone 4 MG TAB PO SCH (08:30)
[2021-07-28] MEDS: Empagliflozin 25 MG TAB PO SCH (08:32)
[2021-07-28] MEDS: Diltiazem HCl 125 MG, Admixture Fee 1 EACH in Sodium Chloride 0.9% 100 ML IVPB SCH (09:18)
[2021-07-28 13:36] LABS: Hemoglobin 17.4 g/dL (14.0-18.0); Mean Corpuscular HGB CONC 32.9 g/dL (32.0-36.0); Mean Corpuscular Hemoglobin 29.2 pg (27.0-31.0); Mean Corpuscular Volume 88.7 fL (78.0-98.0); Mean Platelet Volume 9.5 fL (7.4-10.4); Platelet Count 278 thou/uL (130-400); RBC Distribution Width 13.9 % (11.5-14.5); Red Blood Cell (RBC) Count 5.95 mill/uL (4.70-6.10)
[2021-07-28] MEDS: Insulin Regular 300 UNITS/3 ML VIAL SC PRN ×2 (13:40→19:18)
[2021-07-28 13:55] LABS: Anion Gap 18 mmol/L (10-20); BUN (Urea Nitrogen) 37 mg/dL (8.4-25.7); CRP (Inflammatory) Less than 0.50 mg/dL (= or < 0.5); Calc. Creatinine Clearance 46 mL/min (70-130); Calcium 9.8 mg/dL (7.8-10.44); Carbon Dioxide 18 mmol/L (23-31); Chloride 102 mmol/L (98-107); Glucose 311 mg/dL (83-110); Potassium 5.2 mmol/L (3.5-5.1); Sodium 133 mmol/L (136-145)
[2021-07-28 14:13] LABS: Band 3 % (5-11); Lymphocytes 3 % (21-51); MDiff Complete? YES; Monocytes 1 % (0-10); Neutrophil 93 % (42-75); Platelet Morphology Comment Appears Adequate; RBC Morphology Normal
[2021-07-28] MEDS: Carvedilol 3.125 MG TAB PO SCH (17:19)
[2021-07-28] MEDS: Mometasone Furoate 30 PUFF 220 MCG INH SCH (17:20)
[2021-07-28] MEDS: Zolpidem Tartrate 5 MG TAB PO SCH (20:17)
[2021-07-28] MEDS: HumaLOG 300 UNITS/3 ML VIAL SC PRN (20:19)
[2021-07-29] MEDS: Benzonatate 100 MG CAP PO SCH ×4 (00:12→17:37)
[2021-07-29] MEDS: Albuterol 200 PUFF (6.7GM INHALER) INH SCH ×4 (06:07→20:13)
[2021-07-29] MEDS: Insulin Regular 300 UNITS/3 ML VIAL SC PRN ×3 (07:08→17:55)
[2021-07-29] MEDS: Dexamethasone 4 MG TAB PO SCH (08:42)
[2021-07-29] MEDS: Apixaban 5 MG TAB PO SCH (08:43)
[2021-07-29] MEDS: Carvedilol 3.125 MG TAB PO SCH ×2 (08:44→17:37)
[2021-07-29] MEDS: Empagliflozin 25 MG TAB PO SCH (08:45)
[2021-07-29 13:57] LABS: #Lymphocytes 0.5 thou/uL (1.20-3.40); #Monocytes 0.3 thou/uL (0.11-0.59); #Neutrophils 13.4 thou/uL (1.40-6.50); %Lymphocytes 3.8 % (21.0-51.0); %Monocytes 2.4 % (0.0-10.0); %Neutrophils 93.8 % (42.0-75.0); Hemoglobin 17.1 g/dL (14.0-18.0); Mean Corpuscular HGB CONC 32.6 g/dL (32.0-36.0); Mean Corpuscular Hemoglobin 28.6 pg (27.0-31.0); Mean Corpuscular Volume 87.6 fL (78.0-98.0); Mean Platelet Volume 8.9 fL (7.4-10.4); Platelet Count 238 thou/uL (130-400); RBC Distribution Width 13.6 % (11.5-14.5); Red Blood Cell (RBC) Count 5.99 mill/uL (4.70-6.10); White Blood Cell (WBC) Count 14.3 thou/uL (4.8-10.8)
[2021-07-29 14:18] LABS: Anion Gap 13 mmol/L (10-20); BUN (Urea Nitrogen) 41 mg/dL (8.4-25.7); CRP (Inflammatory) Less than 0.50 mg/dL (= or < 0.5); Calc. Creatinine Clearance 52 mL/min (70-130); Calcium 9.4 mg/dL (7.8-10.44); Carbon Dioxide 21 mmol/L (23-31); Chloride 102 mmol/L (98-107); Glucose 216 mg/dL (83-110); Potassium 5.2 mmol/L (3.5-5.1); Sodium 131 mmol/L (136-145)
[2021-07-29] MEDS: Mometasone Furoate 30 PUFF 220 MCG INH SCH (17:38)
[2021-07-29] MEDS: Zolpidem Tartrate 5 MG TAB PO SCH (20:12)
[2021-07-29] MEDS: HumaLOG 300 UNITS/3 ML VIAL SC PRN (20:34)
[2021-07-30] MEDS: Benzonatate 100 MG CAP PO SCH ×3 (00:20→12:30)
[2021-07-30] MEDS: Insulin Regular 300 UNITS/3 ML VIAL SC PRN ×2 (05:15→11:16)
[2021-07-30 05:20] LABS: #Lymphocytes 0.6 thou/uL (1.20-3.40); #Monocytes 0.3 thou/uL (0.11-0.59); #Neutrophils 11.2 thou/uL (1.40-6.50); %Basophils 0.2 % (0.0-1.0); %Eosinophils 0.1 % (0.0-10.0); %Lymphocytes 4.9 % (21.0-51.0); %Monocytes 2.4 % (0.0-10.0); %Neutrophils 92.4 % (42.0-75.0); Hemoglobin 17.5 g/dL (14.0-18.0); Mean Corpuscular HGB CONC 32.6 g/dL (32.0-36.0); Mean Corpuscular Hemoglobin 29.4 pg (27.0-31.0); Mean Corpuscular Volume 90.2 fL (78.0-98.0); Mean Platelet Volume 9.2 fL (7.4-10.4); Platelet Count 217 thou/uL (130-400); RBC Distribution Width 13.5 % (11.5-14.5); Red Blood Cell (RBC) Count 5.94 mill/uL (4.70-6.10); White Blood Cell (WBC) Count 12.2 thou/uL (4.8-10.8)
[2021-07-30] MEDS: Albuterol 200 PUFF (6.7GM INHALER) INH SCH ×2 (05:21→11:17)
[2021-07-30 05:33] LABS: Anion Gap 14 mmol/L (10-20); BUN (Urea Nitrogen) 40 mg/dL (8.4-25.7); Calc. Creatinine Clearance 54 mL/min (70-130); Calcium 9.4 mg/dL (7.8-10.44); Carbon Dioxide 20 mmol/L (23-31); Chloride 104 mmol/L (98-107); Glucose 237 mg/dL (83-110); Potassium 5.3 mmol/L (3.5-5.1); Sodium 133 mmol/L (136-145)
[2021-07-30] MEDS: Dexamethasone 4 MG TAB PO SCH (09:28)
[2021-07-30] MEDS: Carvedilol 3.125 MG TAB PO SCH (09:28)
[2021-07-30] MEDS: Apixaban 5 MG TAB PO SCH (09:29)
[2021-07-30] MEDS: Empagliflozin 25 MG TAB PO SCH (09:29)
[2021-07-30 12:18] VITALS: BP 134/94; TEMP 97.3
== END 2021-07-30 13:50 | disposition home or self-care (01) | DRG 871 ==
LOC: ERS 18:37 → 2SW 21:03
PROVIDERS: ADMIT Specialist; ATTEND Specialist
PROC: 8E0ZXY6 Isolation (ICD-10-PCS; principal; 2021-07-28)
DX: A41.89 Other specified sepsis (principal); U07.1 COVID-19; J12.82 Pneumonia due to coronavirus disease 2019; I48.20 Chronic atrial fibrillation, unspecified; G61.0 Guillain-Barre syndrome; E87.1 Hypo-osmolality and hyponatremia; J44.0 Chronic obstructive pulmonary disease with (acute) lower respiratory infection; I10 Essential (primary) hypertension; R65.20 Severe sepsis without septic shock; E78.5 Hyperlipidemia, unspecified; E11.65 Type 2 diabetes mellitus with hyperglycemia; Z90.49 Acquired absence of other specified parts of digestive tract; Z90.89 Acquired absence of other organs; Z79.899 Other long term (current) drug therapy; Z79.01 Long term (current) use of anticoagulants
CPT/HCPCS: 36415; 36416; 71045; 80048; 80053; 81003; 83036; 83605; 84484; 85025; 85379; 85652; 86140; 87040; 87086; 93005; 93306; 96365; 96366; 96368; 96375; 96376; J1160; J1815; J2543; J3370; J3490; J7050; J8540; U0002

== ENCOUNTER 2021-08-02 21:53 | Inpatient (IN) | payer MEDICARE, OTHER ==
[~2021-08-02 21:53] MED LIST changes: -ISOVUE-370 76%-LOCM 1 ML ONE; +Iopamidol-370 76% 500 ML 1 ML ONE
[2021-08-02] MEDS ORDERED: Aspirin Chewable 81 MG TAB ONE (22:42)
[2021-08-02] MEDS ORDERED: Diltiazem 125 MG/25 ML ONE (23:26)
[2021-08-02 23:27] LABS: Actual Bicarbonate (HCO3v) 19 mEq/L (22-28); Analyzer IN Cardio ER; Base Excess -5.5 mEq/L (-2.0 to +3.0); Calcium, Ionized (venous) 1.14 mmol/L (1.16-1.32); Chloride (VBG) 97 mmol/L (98-106); Hemoglobin (Hb) 18.7 g/dL (12.6-17.4); Potassium (VBG) 5.13 mmol/L (3.70-5.30); Sodium 131.4 mmol/L (133-146); pH (venous) 7.34 (7.32-7.43)
[2021-08-02 23:43] LABS: INR-International Normal Ratio 1.5; PTT 23.4 sec (22.9-36.1)
[2021-08-02 23:52] LABS: ALT (SGPT) 33 U/L (8-55); AST (SGOT) 20 U/L (5-34); Albumin 3.7 g/dL (3.4-4.8); Alkaline Phosphatase 110 U/L (40-110); Anion Gap 17 mmol/L (10-20); BUN (Urea Nitrogen) 50 mg/dL (8.4-25.7); Calc. Creatinine Clearance 0 mL/min (70-130); Calcium 9.9 mg/dL (7.8-10.44); Carbon Dioxide 24 mmol/L (23-31); Chloride 98 mmol/L (98-107); Glucose 320 mg/dL (83-110); Hemoglobin 18.2 g/dL (14.0-18.0); Mean Corpuscular HGB CONC 32.2 g/dL (32.0-36.0); Mean Corpuscular Hemoglobin 28.4 pg (27.0-31.0); Mean Corpuscular Volume 88.2 fL (78.0-98.0); Platelet Count 145 thou/uL (130-400); Potassium 5.3 mmol/L (3.5-5.1); Protein, Total 6.7 g/dL (5.8-8.1); RBC Distribution Width 13.5 % (11.5-14.5); Red Blood Cell (RBC) Count 6.39 mill/uL (4.70-6.10); Sodium 134 mmol/L (136-145); White Blood Cell (WBC) Count 12.8 thou/uL (4.8-10.8)
[2021-08-02 23:53] LABS: Band 9 % (5-11); Lymphocytes 4 % (21-51); MDiff Complete? YES; Monocytes 5 % (0-10); Neutrophil 82 % (42-75)
[2021-08-03 00:13] LABS: CKMB 3.9 ng/mL (0-6.6)
[2021-08-03] MEDS ORDERED: Cefepime 2 GM VIAL ONE (00:56)
[2021-08-03 01:59] LABS: Bilirubin Negative (Negative); Blood, Urine Negative (Negative); Clarity Clear (Clear); Glucose, Urine (Dipstick) Greater than 1000 mg/dL (Negative); Ketone, Urine 20 mg/dL (Negative); Leukocyte Negative Leu/uL (Negative); Nitrite Negative (Negative); Protein, Urine (Dipstick) Negative (Neg-Trace); Specific Gravity, Urine 1.031 (1.002-1.036); Urobilinogen Normal mg/dL (Less than 2)
[2021-08-03] MEDS ORDERED: Vancomycin 1 GM/200 ML BAG ONE (02:18)
[2021-08-03 03:04] LABS: Lactic Acid 2.2 mmol/L (0.5-2.2)
[2021-08-03] MEDS ORDERED: Ondansetron ODT 4 MG TAB SL PRN (05:30)
[2021-08-03] MEDS ORDERED: Acetaminophen 325 MG TAB PO PRN (05:30)
[2021-08-03] MEDS ORDERED: Ondansetron PF 4 MG/2 ML Vial IVP PRN (05:30)
[2021-08-03 08:29] LABS: Troponin I 0.024 ng/mL (< 0.028)
[2021-08-03] MEDS ORDERED: Albuterol Sulfate 2.5 mg/3 ml Neb NEB PRN (11:15)
[2021-08-03] MEDS ORDERED: Docusate 100 MG CAP PO PRN (11:16)
[2021-08-03 13:51] LABS: Troponin I 0.023 ng/mL (< 0.028)
[2021-08-03] MEDS ORDERED: Nitroglycerin 0.4 MG TAB (25 Tab Bottle) SL PRN (14:59)
[2021-08-03] MEDS ORDERED: ALPRAZolam 0.5 MG TAB PO SCH (15:00)
[2021-08-03] MEDS ORDERED: Dextrose 50% Abboject 50 ML SYRINGE IVP PRN (15:15)
[2021-08-03] MEDS ORDERED: Dextrose 5% in Water 1,000 ML IV PRN (15:15)
[2021-08-03] MEDS ORDERED: traMADol HCl 50 MG TAB PO PRN (16:51)
[2021-08-03] MEDS: Sodium Chloride 0.9% 1,000 ML IV SCH (17:02)
[2021-08-03] MEDS: Insulin Regular 300 UNITS/3 ML VIAL SC PRN (17:03)
[2021-08-03] MEDS ORDERED: Carvedilol 3.125 MG TAB PO SCH (21:00)
[2021-08-03] MEDS: Carvedilol 6.25 MG TAB PO SCH (21:52)
[2021-08-04 05:16] LABS: Anion Gap 14 mmol/L (10-20); BUN (Urea Nitrogen) 31 mg/dL (8.4-25.7); Calc. Creatinine Clearance 60 mL/min (70-130); Calcium 8.5 mg/dL (7.8-10.44); Carbon Dioxide 20 mmol/L (23-31); Chloride 105 mmol/L (98-107); Glucose 174 mg/dL (83-110); Potassium 4.6 mmol/L (3.5-5.1); Sodium 134 mmol/L (136-145)
[2021-08-04 05:55] LABS: Band 1 % (5-11); Hemoglobin 15.6 g/dL (14.0-18.0); Lymphocytes 11 % (21-51); MDiff Complete? YES; Mean Corpuscular HGB CONC 32.1 g/dL (32.0-36.0); Mean Corpuscular Hemoglobin 28.2 pg (27.0-31.0); Mean Corpuscular Volume 87.7 fL (78.0-98.0); Mean Platelet Volume 9.9 fL (7.4-10.4); Monocytes 7 % (0-10); Neutrophil 80 % (42-75); Platelet Count 107 thou/uL (130-400); Platelet Morphology Comment Appears Decreased; RBC Distribution Width 13.4 % (11.5-14.5); Reactive Lymphocytes 1 % (0-10); Red Blood Cell (RBC) Count 5.55 mill/uL (4.70-6.10); White Blood Cell (WBC) Count 12.7 thou/uL (4.8-10.8)
[2021-08-04] MEDS: Sodium Chloride 0.9% 1,000 ML IV SCH ×2 (06:11→20:41)
[2021-08-04] MEDS: Insulin Regular 300 UNITS/3 ML VIAL SC PRN ×2 (06:39→16:44)
[2021-08-04] MEDS ORDERED: Apixaban 5 MG TAB PO SCH (09:00)
[2021-08-04] MEDS: Apixaban 5 MG TAB PO SCH ×2 (09:21→20:42)
[2021-08-04] MEDS: Empagliflozin 25 MG TAB PO SCH (09:22)
[2021-08-04] MEDS: Digoxin 0.5 MG/2 ML AMP SLOW IVP SCH ×2 (09:24→14:11)
[2021-08-04] MEDS ORDERED: Benzonatate 100 MG CAP PO PRN (10:01)
[2021-08-04] MEDS ORDERED: Lantus 1000 UNITS/10 ML VIAL SC SCH (11:00)
[2021-08-04] MEDS ORDERED: Budesonide 0.5 MG/2 ML NEB NEB SCH (11:30)
[2021-08-04] MEDS ORDERED: Regadenoson 0.4 MG/5 ML SYRINGE ONE (12:01)
[2021-08-04] MEDS ORDERED: Digoxin 0.25 MG TAB PO SCH (13:00)
[2021-08-04 14:02] LABS: SARS-CoV-2 PCR by NAA DETECTED (NotDetected)
[2021-08-04] MEDS: Carvedilol 6.25 MG TAB PO SCH ×2 (14:12→20:42)
[2021-08-04] MEDS: Budesonide 0.5 MG/2 ML NEB NEB SCH (18:49)
[2021-08-04] MEDS: Diazepam 2 MG TAB PO PRN (20:42)
[2021-08-05] MEDS: Sodium Chloride 0.9% 1,000 ML IV SCH (05:56)
[2021-08-05] MEDS: Budesonide 0.5 MG/2 ML NEB NEB SCH ×2 (06:57→18:00)
[2021-08-05] MEDS ORDERED: Carvedilol 6.25 MG TAB PO SCH (09:00)
[2021-08-05] MEDS: Digoxin 0.125 MG TAB PO SCH (09:59)
[2021-08-05] MEDS: Carvedilol 6.25 MG TAB PO SCH ×2 (09:59→21:20)
[2021-08-05] MEDS: Apixaban 5 MG TAB PO SCH ×2 (10:00→21:21)
[2021-08-05] MEDS: Empagliflozin 25 MG TAB PO SCH (10:00)
[2021-08-05] MEDS: Lantus 1000 UNITS/10 ML VIAL SC SCH (10:02)
[2021-08-05 13:35] LABS: #Eosinphils 0.1 thou/uL (0.0-0.7); #Lymphocytes 0.8 thou/uL (1.20-3.40); #Monocytes 0.8 thou/uL (0.11-0.59); #Neutrophils 7.2 thou/uL (1.40-6.50); %Basophils 0.3 % (0.0-1.0); %Eosinophils 0.6 % (0.0-10.0); %Lymphocytes 8.6 % (21.0-51.0); %Monocytes 9.1 % (0.0-10.0); %Neutrophils 81.5 % (42.0-75.0); Hemoglobin 14.9 g/dL (14.0-18.0); Mean Corpuscular HGB CONC 31.3 g/dL (32.0-36.0); Mean Corpuscular Hemoglobin 27.8 pg (27.0-31.0); Mean Corpuscular Volume 88.8 fL (78.0-98.0); Mean Platelet Volume 9.9 fL (7.4-10.4); Platelet Count 100 thou/uL (130-400); RBC Distribution Width 13.5 % (11.5-14.5); Red Blood Cell (RBC) Count 5.36 mill/uL (4.70-6.10); White Blood Cell (WBC) Count 8.9 thou/uL (4.8-10.8)
[2021-08-05 13:55] LABS: ALT (SGPT) 25 U/L (8-55); AST (SGOT) 25 U/L (5-34); Albumin 2.6 g/dL (3.4-4.8); Alkaline Phosphatase 69 U/L (40-110); Anion Gap 14 mmol/L (10-20); BUN (Urea Nitrogen) 22 mg/dL (8.4-25.7); Bilirubin, Total 0.8 mg/dL (0.2-1.2); Calc. Creatinine Clearance 67 mL/min (70-130); Calcium 8.4 mg/dL (7.8-10.44); Carbon Dioxide 18 mmol/L (23-31); Chloride 105 mmol/L (98-107); Globulin 2.2 g/dL (2.4-3.5); Glucose 159 mg/dL (83-110); Potassium 4.2 mmol/L (3.5-5.1); Protein, Total 4.8 g/dL (5.8-8.1); Sodium 133 mmol/L (136-145)
[2021-08-05 15:01] VITALS: BMI 22.3
[2021-08-05] MEDS: Diazepam 2 MG TAB PO PRN (21:20)
[2021-08-06] MEDS: Sodium Chloride 0.9% 1,000 ML IV SCH (02:11)
[2021-08-06 05:14] LABS: Anion Gap 12 mmol/L (10-20); BUN (Urea Nitrogen) 19 mg/dL (8.4-25.7); Calc. Creatinine Clearance 69 mL/min (70-130); Calcium 8.2 mg/dL (7.8-10.44); Carbon Dioxide 17 mmol/L (23-31); Chloride 109 mmol/L (98-107); Digoxin 0.82 ng/mL (0.8-2.0); Glucose 123 mg/dL (83-110); Sodium 134 mmol/L (136-145)
[2021-08-06] MEDS: Budesonide 0.5 MG/2 ML NEB NEB SCH ×2 (06:54→18:00)
[2021-08-06] MEDS: Apixaban 5 MG TAB PO SCH ×2 (10:10→21:19)
[2021-08-06] MEDS: Digoxin 0.125 MG TAB PO SCH (10:10)
[2021-08-06] MEDS: Carvedilol 6.25 MG TAB PO SCH ×2 (10:10→21:19)
[2021-08-06] MEDS: Empagliflozin 25 MG TAB PO SCH (10:10)
[2021-08-06] MEDS: Losartan 25 MG TAB PO SCH (10:13)
[2021-08-06] MEDS: Lantus 1000 UNITS/10 ML VIAL SC SCH (10:15)
[2021-08-06] MEDS: Insulin Regular 300 UNITS/3 ML VIAL SC PRN ×2 (17:51→21:19)
[2021-08-07] MEDS: Budesonide 0.5 MG/2 ML NEB NEB SCH ×2 (06:34→19:20)
[2021-08-07] MEDS: Digoxin 0.125 MG TAB PO SCH (08:18)
[2021-08-07] MEDS: Apixaban 5 MG TAB PO SCH ×2 (08:18→21:21)
[2021-08-07] MEDS: Empagliflozin 25 MG TAB PO SCH (08:18)
[2021-08-07] MEDS: Carvedilol 6.25 MG TAB PO SCH ×2 (08:18→21:23)
[2021-08-07] MEDS: Lantus 1000 UNITS/10 ML VIAL SC SCH (08:19)
[2021-08-07] MEDS: Losartan 25 MG TAB PO SCH (16:38)
[2021-08-07] MEDS: Insulin Regular 300 UNITS/3 ML VIAL SC PRN (17:21)
[2021-08-07 21:23] VITALS: BP 121/58; TEMP 97.7
== END 2021-08-07 21:44 | DRG 309 ==
LOC: ERS 21:53 → 2NO 08-03 02:12
PROVIDERS: ADMIT Specialist; ATTEND Specialist
DX: I48.21 Permanent atrial fibrillation (principal); R64 Cachexia; E44.0 Moderate protein-calorie malnutrition; I10 Essential (primary) hypertension; I27.20 Pulmonary hypertension, unspecified; E78.5 Hyperlipidemia, unspecified; E11.9 Type 2 diabetes mellitus without complications; F41.1 Generalized anxiety disorder; E86.0 Dehydration; J44.9 Chronic obstructive pulmonary disease, unspecified; J45.40 Moderate persistent asthma, uncomplicated; I42.9 Cardiomyopathy, unspecified; I34.0 Nonrheumatic mitral (valve) insufficiency; Z79.01 Long term (current) use of anticoagulants; Z90.49 Acquired absence of other specified parts of digestive tract; Z68.22 Body mass index [BMI] 22.0-22.9, adult; Z86.16 Personal history of COVID-19
CPT/HCPCS: 36415; 36416; 71045; 71275; 78452; 80048; 80053; 80162; 81003; 82553; 82805; 83605; 83880; 84443; 84484; 85025; 85610; 85730; 87040; 87086; 93005; 93010; 93017; 94640; 96365; 96366; 96367; 96376; A9500; J0692; J1160; J1815; J2785; J3370; J3490; J7050; J7611; J7626; Q9967; U0003; U0005

== ENCOUNTER 2021-10-23 13:28 | Outpatient (CLI) | payer MEDICARE, OTHER ==
[2021-10-24 11:59] LABS: SARS-CoV-2 PCR by NAA Not Detected (NotDetected)
== END 2021-10-23 13:29 | disposition home or self-care (01) ==
LOC: LABBT 13:28
PROVIDERS: ATTEND Internal Medicine Gastroenterology
DX: Z01.812 Encounter for preprocedural laboratory examination (principal); K63.5 Polyp of colon; Z20.822 Contact with and (suspected) exposure to COVID-19
CPT/HCPCS: U0003; U0005

== ENCOUNTER 2021-10-28 07:50 | Day surgery (SDC) | payer MEDICARE, OTHER ==
[2021-10-23 11:57] VITALS: BMI 24.3
[2021-10-28] MEDS ORDERED: PROPOFOL 200 MG/20 ML VIAL ONE (10:00)
== END 2021-10-28 10:48 | disposition home or self-care (01) ==
LOC: SDC 07:50
PROVIDERS: ATTEND Internal Medicine Gastroenterology
PROC: 0DBP8ZX Excision of Rectum, Via Natural or Artificial Opening Endoscopic, Diagnostic (ICD-10-PCS; principal; 2021-10-28)
DX: Z09 Encounter for follow-up examination after completed treatment for conditions other than malignant neoplasm (principal); I48.91 Unspecified atrial fibrillation; E11.9 Type 2 diabetes mellitus without complications; I10 Essential (primary) hypertension; E78.00 Pure hypercholesterolemia, unspecified; Z86.010 Personal history of colon polyps; Z79.01 Long term (current) use of anticoagulants; Z79.84 Long term (current) use of oral hypoglycemic drugs; Z79.899 Other long term (current) drug therapy
CPT/HCPCS: 88305; J2704

== ENCOUNTER 2023-09-21 21:53 | Inpatient (IN) | payer MEDICARE, OTHER ==
[2023-09-21] MEDS ORDERED: dilTIAZem 25 MG/5 ML VIAL ONE (22:26)
[2023-09-21 22:42] LABS: #Eosinphils 0.1 thou/uL (0.0-0.7); #Monocytes 0.5 thou/uL (0.11-0.59); #Neutrophils 4.5 thou/uL (1.40-6.50); %Basophils 0.6 % (0.0-1.0); %Eosinophils 1.4 % (0.0-10.0); %Lymphocytes 26.7 % (21.0-51.0); %Monocytes 7.6 % (0.0-10.0); %Neutrophils 63.1 % (42.0-75.0); Hematocrit 46.7 % (42.0-52.0); Hemoglobin 15.4 g/dL (14.0-18.0); Mean Corpuscular Hemoglobin 28.2 pg (27.0-31.0); Mean Corpuscular Volume 85.4 fl (78.0-98.0); Mean Platelet Volume 11.5 fL (7.4-10.4); Platelet Count 187 10x3/uL (130-400); RBC Distribution Width 13.2 % (11.5-14.5); Red Blood Cell (RBC) Count 5.47 mill/uL (4.70-6.10); White Blood Cell (WBC) Count 7.1 10x3/uL (4.8-10.8)
[2023-09-21 22:51] LABS: Bacteria/HPF None Seen HPF (None Seen); Bilirubin Negative (Negative); Blood, Urine Negative (Negative); CAUTI Indications for Culture Dysuria,urgency,freq; Clarity Clear (Clear); Glucose, Urine (Dipstick) Normal (Negative); Ketone, Urine Negative (Negative); Leukocyte Negative Leu/uL (Negative); Nitrite Negative (Negative); Protein, Urine (Dipstick) Negative (Neg-Trace); RBC/HPF 0-3 HPF (0-3); Specific Gravity, Urine 1.006 (1.002-1.036); Squamous Epithelial None Seen HPF (0-3); Urobilinogen Normal mg/dL (Less than 2); WBC/HPF None Seen HPF (0-3)
[2023-09-21 22:53] LABS: Urine Culture Reflex No No
[2023-09-21 23:09] LABS: Troponin I 0.019 ng/mL (< 0.028)
[2023-09-21 23:18] LABS: ALT (SGPT) 17 U/L (8-55); Albumin 3.9 g/dL (3.4-4.8); Alkaline Phosphatase 78 U/L (40-110); Anion Gap 15 mmol/L (10-20); BUN (Urea Nitrogen) 12 mg/dL (8.4-25.7); Bilirubin, Total 1.1 mg/dL (0.2-1.2); Calc. Creatinine Clearance 0 mL/min (70-130); Calcium 9.4 mg/dL (7.8-10.44); Carbon Dioxide 25 mmol/L (23-31); Chloride 100 mmol/L (98-107); Estimated GFR 72; Globulin 2.4 g/dL (2.4-3.5); Glucose 295 mg/dL (83-110); Potassium 4.3 mmol/L (3.5-5.1); Protein, Total 6.3 g/dL (5.8-8.1); Sodium 136 mmol/L (136-145)
[2023-09-21] MEDS ORDERED: dilTIAZem 125 MG/25 ML SDV ONE (23:47)
[2023-09-21] MEDS ORDERED: Ondansetron PF 4 MG/2 ML Vial IVP PRN (23:48)
[2023-09-21] MEDS ORDERED: cefTRIAXone (ROCEPHIN) 1 GM VIAL ONE (23:51)
[2023-09-21] MEDS ORDERED: Sodium Chloride 0.9% 100 ML ONE (23:51)
[2023-09-22 00:05] LABS: AST (SGOT) 24 U/L (5-34)
[2023-09-22] MEDS ORDERED: dilTIAZem 125 MG, Admixture Fee 1 EACH in Sodium Chloride 0.9% 100 ML IVPB SCH (01:00)
[2023-09-22] MEDS ORDERED: Dextrose 50% Abboject 50 ML SYRINGE SLOW IVP PRN (01:13)
[2023-09-22] MEDS ORDERED: Dextrose 5% in Water 1,000 ML IV PRN (01:13)
[2023-09-22] MEDS ORDERED: Glucagon 1 MG/ML KIT IM PRN (01:13)
[2023-09-22] MEDS ORDERED: dilTIAZem 125 MG in Sodium Chloride 0.9% 100 ML IVPB SCH (01:15)
[2023-09-22] MEDS ORDERED: Doxycycline 100 MG in Sodium Chloride 0.9% 100 ML IVPB SCH (01:45)
[2023-09-22] MEDS ORDERED: Doxycycline 100 MG CAP PO SCH (02:00)
[2023-09-22] MEDS ORDERED: Metoprolol Tartrate 5 MG (5 mL) VIAL IVP SCH (03:30)
[2023-09-22 03:34] LABS: SARS-CoV-2 NAA Rapid Test Not Detected (NotDetected)
[2023-09-22] MEDS ORDERED: Metoprolol Tartrate 5 MG (5 mL) VIAL ONE (03:51)
[2023-09-22 04:45] LABS: #Eosinphils 0.2 thou/uL (0.0-0.7); #Monocytes 0.6 thou/uL (0.11-0.59); #Neutrophils 4.8 thou/uL (1.40-6.50); %Basophils 0.5 % (0.0-1.0); %Lymphocytes 25.3 % (21.0-51.0); %Monocytes 8.2 % (0.0-10.0); %Neutrophils 63.3 % (42.0-75.0); Hematocrit 45.4 % (42.0-52.0); Hemoglobin 14.6 g/dL (14.0-18.0); Mean Corpuscular HGB CONC 32.2 g/dL (32.0-36.0); Mean Corpuscular Hemoglobin 27.9 pg (27.0-31.0); Mean Corpuscular Volume 86.8 fl (78.0-98.0); Mean Platelet Volume 11.2 fL (7.4-10.4); Platelet Count 180 10x3/uL (130-400); RBC Distribution Width 13.4 % (11.5-14.5); Red Blood Cell (RBC) Count 5.23 mill/uL (4.70-6.10); White Blood Cell (WBC) Count 7.6 10x3/uL (4.8-10.8)
[2023-09-22 05:11] LABS: Anion Gap 14 mmol/L (10-20); BUN (Urea Nitrogen) 9 mg/dL (8.4-25.7); Calc. Creatinine Clearance 64 mL/min (70-130); Calcium 9.3 mg/dL (7.8-10.44); Carbon Dioxide 22 mmol/L (23-31); Chloride 103 mmol/L (98-107); Estimated GFR 84; Glucose 254 mg/dL (83-110); Potassium 4.1 mmol/L (3.5-5.1); Sodium 135 mmol/L (136-145)
[2023-09-22] MEDS ORDERED: Insulin Regular 300 UNITS/3 ML VIAL ONE (06:36)
[2023-09-22] MEDS ORDERED: HumaLOG 300 UNITS/3 ML VIAL ONE (06:40)
[2023-09-22] MEDS ORDERED: Famotidine 20 MG TAB ONE (08:53)
[2023-09-22] MEDS ORDERED: Doxycycline 100 MG CAP ONE (08:53)
[2023-09-22] MEDS ORDERED: Cefepime 1 GM VIAL ONE (08:54)
[2023-09-22] MEDS ORDERED: Sodium Chloride 0.9% 0 ML ONE (08:54)
[2023-09-22] MEDS ORDERED: Rivaroxaban 10 MG TAB ONE (09:07)
[2023-09-22] MEDS: Rivaroxaban 10 MG TAB PO SCH (09:30)
[2023-09-22] MEDS: dilTIAZem 125 MG in Sodium Chloride 0.9% 100 ML IVPB SCH ×2 (10:00→22:45)
[2023-09-22] MEDS ORDERED: dilTIAZem 125 MG/25 ML SDV ONE (10:01)
[2023-09-22] MEDS ORDERED: Digoxin 0.25 MG TAB PO SCH (11:15)
[2023-09-22] MEDS ORDERED: dilTIAZem CD 180 MG CAP PO SCH ×2 (11:15→21:00)
[2023-09-22] MEDS ORDERED: Digoxin 0.25 MG TAB ONE (11:29)
[2023-09-22] MEDS: HumaLOG 300 UNITS/3 ML VIAL SC PRN ×3 (11:45→20:19)
[2023-09-22 13:06] LABS: Legionella Urinary Ag Negative (Negative)
[2023-09-22 13:07] LABS: Strep pneumo Urine Ag NEGATIVE (NEGATIVE)
[2023-09-22] MEDS ORDERED: Iopamidol-370 76% 500 ML MDV (1 ML CHARGE) ONE (14:01)
[2023-09-22] MEDS: Doxycycline 100 MG CAP PO SCH (17:07)
[2023-09-22] MEDS: cefTRIAXone\\ROCEPHIN 2 GM in Sodium Chloride 0.9% 100 ML IVPB SCH (22:47)
[2023-09-23] MEDS: Doxycycline 100 MG CAP PO SCH ×2 (00:59→14:29)
[2023-09-23] MEDS ORDERED: cefTRIAXone\\ROCEPHIN 2 GM in Sodium Chloride 0.9% 100 ML IVPB SCH (01:00)
[2023-09-23 06:37] LABS: #Eosinphils 0.1 thou/uL (0.0-0.7); #Monocytes 0.7 thou/uL (0.11-0.59); #Neutrophils 5.3 thou/uL (1.40-6.50); %Basophils 0.5 % (0.0-1.0); %Eosinophils 1.1 % (0.0-10.0); %Lymphocytes 15.6 % (21.0-51.0); %Monocytes 9.9 % (0.0-10.0); %Neutrophils 71.8 % (42.0-75.0); Hematocrit 43.5 % (42.0-52.0); Mean Corpuscular HGB CONC 32.2 g/dL (32.0-36.0); Mean Corpuscular Hemoglobin 27.7 pg (27.0-31.0); Mean Corpuscular Volume 86.1 fl (78.0-98.0); Mean Platelet Volume 11.4 fL (7.4-10.4); Platelet Count 189 10x3/uL (130-400); RBC Distribution Width 13.5 % (11.5-14.5); Red Blood Cell (RBC) Count 5.05 mill/uL (4.70-6.10); White Blood Cell (WBC) Count 7.4 10x3/uL (4.8-10.8)
[2023-09-23 07:06] LABS: Anion Gap 14 mmol/L (10-20); BUN (Urea Nitrogen) 15 mg/dL (8.4-25.7); Calc. Creatinine Clearance 63 mL/min (70-130); Calcium 9.2 mg/dL (7.8-10.44); Carbon Dioxide 22 mmol/L (23-31); Chloride 103 mmol/L (98-107); Estimated GFR 83; Glucose 243 mg/dL (83-110); Potassium 4.2 mmol/L (3.5-5.1); Sodium 135 mmol/L (136-145)
[2023-09-23] MEDS: Rivaroxaban 10 MG TAB PO SCH (08:48)
[2023-09-23] MEDS: dilTIAZem CD 240 MG CAP PO SCH (08:48)
[2023-09-23] MEDS: Digoxin 0.125 MG TAB PO SCH (08:48)
[2023-09-23] MEDS ORDERED: Carvedilol 3.125 MG TAB PO SCH (09:00)
[2023-09-23] MEDS ORDERED: dilTIAZem 125 MG in Sodium Chloride 0.9% 100 ML IVPB SCH (14:00)
[2023-09-23] MEDS: HumaLOG 300 UNITS/3 ML VIAL SC PRN (17:11)
[2023-09-24] MEDS: cefTRIAXone\\ROCEPHIN 2 GM in Sodium Chloride 0.9% 100 ML IVPB SCH (01:09)
[2023-09-24] MEDS: Doxycycline 100 MG CAP PO SCH ×2 (01:09→14:54)
[2023-09-24] MEDS: HumaLOG 300 UNITS/3 ML VIAL SC PRN ×4 (06:26→20:06)
[2023-09-24 06:37] LABS: #Monocytes 0.9 thou/uL (0.11-0.59); #Neutrophils 8.1 thou/uL (1.40-6.50); %Basophils 0.3 % (0.0-1.0); %Eosinophils 0.2 % (0.0-10.0); %Lymphocytes 15.3 % (21.0-51.0); %Monocytes 8.6 % (0.0-10.0); %Neutrophils 74.6 % (42.0-75.0); Hematocrit 45.9 % (42.0-52.0); Hemoglobin 14.4 g/dL (14.0-18.0); Mean Corpuscular HGB CONC 31.4 g/dL (32.0-36.0); Mean Corpuscular Hemoglobin 27.4 pg (27.0-31.0); Mean Corpuscular Volume 87.4 fl (78.0-98.0); Mean Platelet Volume 11.3 fL (7.4-10.4); Platelet Count 201 10x3/uL (130-400); RBC Distribution Width 13.4 % (11.5-14.5); Red Blood Cell (RBC) Count 5.25 mill/uL (4.70-6.10); White Blood Cell (WBC) Count 10.9 10x3/uL (4.8-10.8)
[2023-09-24 07:01] LABS: Anion Gap 16 mmol/L (10-20); BUN (Urea Nitrogen) 15 mg/dL (8.4-25.7); Calc. Creatinine Clearance 62 mL/min (70-130); Calcium 9.3 mg/dL (7.8-10.44); Carbon Dioxide 21 mmol/L (23-31); Chloride 99 mmol/L (98-107); Estimated GFR 83; Glucose 234 mg/dL (83-110); Potassium 4.2 mmol/L (3.5-5.1); Sodium 132 mmol/L (136-145)
[2023-09-24] MEDS: dilTIAZem CD 240 MG CAP PO SCH (09:09)
[2023-09-24] MEDS: Digoxin 0.125 MG TAB PO SCH (09:09)
[2023-09-24] MEDS: Metoprolol Tartrate 25 MG TAB PO SCH ×2 (09:10→20:05)
[2023-09-24] MEDS: Rivaroxaban 10 MG TAB PO SCH (09:10)
[2023-09-24] MEDS ORDERED: Furosemide 40 MG (4 mL) VIAL IVP SCH (12:15)
[2023-09-25] MEDS: cefTRIAXone\\ROCEPHIN 2 GM in Sodium Chloride 0.9% 100 ML IVPB SCH (00:06)
[2023-09-25] MEDS: Doxycycline 100 MG CAP PO SCH ×2 (00:07→12:54)
[2023-09-25 06:06] LABS: #Monocytes 1.1 thou/uL (0.11-0.59); #Neutrophils 7.7 thou/uL (1.40-6.50); %Basophils 0.4 % (0.0-1.0); %Eosinophils 0.3 % (0.0-10.0); %Monocytes 10.8 % (0.0-10.0); %Neutrophils 74.4 % (42.0-75.0); Hematocrit 47.1 % (42.0-52.0); Hemoglobin 15.4 g/dL (14.0-18.0); Mean Corpuscular HGB CONC 32.7 g/dL (32.0-36.0); Mean Corpuscular Hemoglobin 27.6 pg (27.0-31.0); Mean Platelet Volume 11.5 fL (7.4-10.4); Platelet Count 190 10x3/uL (130-400); RBC Distribution Width 13.1 % (11.5-14.5); Red Blood Cell (RBC) Count 5.57 mill/uL (4.70-6.10); White Blood Cell (WBC) Count 10.4 10x3/uL (4.8-10.8)
[2023-09-25 06:19] LABS: Mean Corpuscular Volume 84.6 fl (78.0-98.0)
[2023-09-25] MEDS: HumaLOG 300 UNITS/3 ML VIAL SC PRN ×4 (06:21→20:49)
[2023-09-25] MEDS: Benzonatate 100 MG CAP PO PRN (06:22)
[2023-09-25 06:30] LABS: Anion Gap 15 mmol/L (10-20); BUN (Urea Nitrogen) 17 mg/dL (8.4-25.7); Calc. Creatinine Clearance 55 mL/min (70-130); Calcium 9.4 mg/dL (7.8-10.44); Carbon Dioxide 25 mmol/L (23-31); Chloride 98 mmol/L (98-107); Estimated GFR 73; Glucose 267 mg/dL (83-110); Potassium 4.3 mmol/L (3.5-5.1); Sodium 134 mmol/L (136-145)
[2023-09-25] MEDS ORDERED: Furosemide 40 MG (4 mL) VIAL SLOW IVP SCH (08:30)
[2023-09-25] MEDS: guaiFENesin/Codeine 200 mg/20 mg 10 ml Cup PO PRN ×2 (08:35→14:57)
[2023-09-25] MEDS: Rivaroxaban 10 MG TAB PO SCH (08:35)
[2023-09-25] MEDS: Digoxin 0.125 MG TAB PO SCH (08:36)
[2023-09-25] MEDS: Metoprolol Tartrate 25 MG TAB PO SCH ×2 (08:36→20:27)
[2023-09-25] MEDS: dilTIAZem CD 240 MG CAP PO SCH (08:36)
[2023-09-25] MEDS ORDERED: Iopamidol 370 76% 100 ML VIAL ONE (11:57)
[2023-09-25] MEDS ORDERED: dilTIAZem ER 60 MG CAP PO SCH (14:30)
[2023-09-25] MEDS: Acetaminophen 325 MG TAB PO PRN (14:57)
[2023-09-25] MEDS: dilTIAZem 30 MG TAB PO SCH ×2 (14:57→20:26)
[2023-09-25] MEDS ORDERED: Piperacillin/Tazobactam 3.375 GM in Sodium Chloride 0.9% 100 ML IVPB SCH ×2 (15:30→15:45)
[2023-09-25] MEDS: Ipratropium/Albuterol 3 ML NEB NEB PRN ×3 (16:20→19:19)
[2023-09-25] MEDS: Budesonide 0.5 MG/2 ML NEB NEB SCH (19:10)
[2023-09-25 19:15] LABS: Actual Bicarbonate (HCO3a) 27.8 mEq/L (22-28); Base Excess (BEa) 3.5 mEq/L (-2.0 to +3.0); CO2 Tension 40.9 mmHg (35.0-45.0); Calcium, Ionized (arterial) 1.22 mmol/L (1.12-1.30); Hematocrit-ABG 43 % (42.0-52.0); Hemoglobin (Hb) 14.7 g/dL (14.0-18.0); O2 Tension (PaO2), arterial 64.2 mmHg (> 60.0); Potassium - ABG Lab 3.72 mmol/L (3.70-5.30)
[2023-09-25 19:21] LABS: ALV-art Gradient 205.525 mmHg (0-20); Puncture Site LR
[2023-09-25] MEDS: Piperacillin/Tazobactam 3.375 GM in Sodium Chloride 0.9% 100 ML IVPB SCH (21:00)
[2023-09-25 22:56] LABS: Actual Bicarbonate (HCO3a) 26.8 mEq/L (22-28); Base Excess (BEa) 3.2 mEq/L (-2.0 to +3.0); CO2 Tension 37.5 mmHg (35.0-45.0); Calcium, Ionized (arterial) 1.23 mmol/L (1.12-1.30); Carboxyhemoglobin (COHb) 0.7 gm% (0.0-3.0); Hematocrit-ABG 45 % (42.0-52.0); Hemoglobin (Hb) 15.2 g/dL (14.0-18.0); Potassium - ABG Lab 3.47 mmol/L (3.70-5.30); pH, Arterial 7.472 (7.35-7.45)
[2023-09-25] MEDS ORDERED: Furosemide 20 MG (2 mL) VIAL SLOW IVP SCH (23:15)
[2023-09-25] MEDS ORDERED: methylPREDNISolone Sod Succ/PF 125 MG/2 ML VIAL IVP SCH (23:30)
[2023-09-25] MEDS ORDERED: Albuterol 2.5 MG (3 mL) NEB NEB PRN (23:45)
[2023-09-26] MEDS: Ipratropium/Albuterol 3 ML NEB NEB SCH ×4 (01:00→18:33)
[2023-09-26] MEDS: Doxycycline 100 MG CAP PO SCH ×2 (01:30→13:59)
[2023-09-26] MEDS: dilTIAZem 30 MG TAB PO SCH (01:30)
[2023-09-26] MEDS: Piperacillin/Tazobactam 3.375 GM in Sodium Chloride 0.9% 100 ML IVPB SCH ×3 (05:04→20:19)
[2023-09-26] MEDS: methylPREDNISolone Sod Succ 40 MG VIAL IVP SCH ×3 (05:04→17:29)
[2023-09-26 06:09] LABS: Anion Gap 14 mmol/L (10-20); BUN (Urea Nitrogen) 21 mg/dL (8.4-25.7); Calc. Creatinine Clearance 48 mL/min (70-130); Calcium 9.5 mg/dL (7.8-10.44); Carbon Dioxide 25 mmol/L (23-31); Chloride 96 mmol/L (98-107); Estimated GFR 68; Glucose 349 mg/dL (83-110); Potassium 4.3 mmol/L (3.5-5.1); Sodium 131 mmol/L (136-145)
[2023-09-26] MEDS: HumaLOG 300 UNITS/3 ML VIAL SC PRN ×4 (07:04→20:21)
[2023-09-26] MEDS ORDERED: Enalaprilat Dihydrate 1.25 MG/ML VIAL SLOW IVP SCH (07:54)
[2023-09-26] MEDS: Budesonide 0.5 MG/2 ML NEB NEB SCH ×2 (08:09→18:35)
[2023-09-26] MEDS: dilTIAZem CD 180 MG CAP PO SCH (09:45)
[2023-09-26] MEDS: Digoxin 0.125 MG TAB PO SCH (09:46)
[2023-09-26] MEDS: Rivaroxaban 10 MG TAB PO SCH (09:46)
[2023-09-26] MEDS: Metoprolol Tartrate 25 MG TAB PO SCH ×2 (09:46→20:19)
[2023-09-26] MEDS: dilTIAZem 125 MG in Sodium Chloride 0.9% 100 ML IVPB SCH (17:29)
[2023-09-27] MEDS: Doxycycline 100 MG CAP PO SCH ×2 (00:57→13:43)
[2023-09-27] MEDS: methylPREDNISolone Sod Succ 40 MG VIAL IVP SCH ×5 (00:57→20:29)
[2023-09-27] MEDS: Ipratropium/Albuterol 3 ML NEB NEB SCH ×4 (01:05→18:51)
[2023-09-27] MEDS: Piperacillin/Tazobactam 3.375 GM in Sodium Chloride 0.9% 100 ML IVPB SCH ×3 (05:46→20:30)
[2023-09-27] MEDS: HumaLOG 300 UNITS/3 ML VIAL SC PRN ×4 (06:06→20:32)
[2023-09-27] MEDS: Budesonide 0.5 MG/2 ML NEB NEB SCH ×2 (07:39→18:54)
[2023-09-27] MEDS: Metoprolol Tartrate 25 MG TAB PO SCH ×2 (10:01→20:30)
[2023-09-27] MEDS: dilTIAZem CD 180 MG CAP PO SCH (10:01)
[2023-09-27] MEDS: Digoxin 0.125 MG TAB PO SCH (10:01)
[2023-09-27] MEDS: Rivaroxaban 10 MG TAB PO SCH (10:10)
[2023-09-27] MEDS ORDERED: Insulin Glargine 30 UNITS/0.3 ML VIAL SC SCH (11:30)
[2023-09-27] MEDS: dilTIAZem 125 MG in Sodium Chloride 0.9% 100 ML IVPB SCH (17:49)
[2023-09-27] MEDS ORDERED: niCARdipine 25 MG in Sodium Chloride 0.9% 250 ML 250 ML IVPB SCH (20:00)
[2023-09-27] MEDS: Insulin Glargine 30 UNITS/0.3 ML VIAL SC SCH (20:30)
[2023-09-28] MEDS: Ipratropium/Albuterol 3 ML NEB NEB SCH ×4 (01:18→19:17)
[2023-09-28] MEDS: Doxycycline 100 MG CAP PO SCH ×2 (03:05→14:23)
[2023-09-28] MEDS: methylPREDNISolone Sod Succ 40 MG VIAL IVP SCH ×3 (03:05→20:44)
[2023-09-28 03:52] LABS: #Monocytes 0.2 thou/uL (0.11-0.59); #Neutrophils 6.5 thou/uL (1.40-6.50); %Basophils 0.1 % (0.0-1.0); %Lymphocytes 5.3 % (21.0-51.0); %Monocytes 2.4 % (0.0-10.0); %Neutrophils 91.2 % (42.0-75.0); Hematocrit 42.4 % (42.0-52.0); Hemoglobin 13.9 g/dL (14.0-18.0); Mean Corpuscular HGB CONC 32.8 g/dL (32.0-36.0); Mean Corpuscular Volume 82.5 fl (78.0-98.0); Mean Platelet Volume 11.4 fL (7.4-10.4); Platelet Count 229 10x3/uL (130-400); RBC Distribution Width 12.9 % (11.5-14.5); Red Blood Cell (RBC) Count 5.14 mill/uL (4.70-6.10); White Blood Cell (WBC) Count 7.2 10x3/uL (4.8-10.8)
[2023-09-28 04:01] LABS: Hemoglobin A1c 8.6 % (4.0-6.0)
[2023-09-28 04:20] LABS: ALT (SGPT) 30 U/L (8-55); AST (SGOT) 27 U/L (5-34); Albumin 3.5 g/dL (3.4-4.8); Alkaline Phosphatase 78 U/L (40-110); Anion Gap 18 mmol/L (10-20); BUN (Urea Nitrogen) 29 mg/dL (8.4-25.7); Bilirubin, Total 0.6 mg/dL (0.2-1.2); Calc. Creatinine Clearance 47 mL/min (70-130); Calcium 9.4 mg/dL (7.8-10.44); Carbon Dioxide 22 mmol/L (23-31); Chloride 95 mmol/L (98-107); Estimated GFR 64; Globulin 2.9 g/dL (2.4-3.5); Glucose 366 mg/dL (83-110); Magnesium 2.2 mg/dL (1.6-2.6); Potassium 3.9 mmol/L (3.5-5.1); Protein, Total 6.4 g/dL (5.8-8.1); Sodium 131 mmol/L (136-145)
[2023-09-28] MEDS: Piperacillin/Tazobactam 3.375 GM in Sodium Chloride 0.9% 100 ML IVPB SCH ×3 (06:23→22:17)
[2023-09-28] MEDS: HumaLOG 300 UNITS/3 ML VIAL SC PRN ×4 (06:46→20:44)
[2023-09-28] MEDS: Budesonide 0.5 MG/2 ML NEB NEB SCH ×2 (07:32→19:21)
[2023-09-28] MEDS: dilTIAZem CD 180 MG CAP PO SCH (08:19)
[2023-09-28] MEDS: Digoxin 0.125 MG TAB PO SCH (08:19)
[2023-09-28] MEDS: Metoprolol Tartrate 25 MG TAB PO SCH ×2 (08:19→20:43)
[2023-09-28] MEDS: Rivaroxaban 10 MG TAB PO SCH (08:20)
[2023-09-28] MEDS: Insulin Glargine 30 UNITS/0.3 ML VIAL SC SCH ×2 (08:21→20:43)
[2023-09-28 10:42] LABS: O2 Tension (PaO2), arterial 52.2 mmHg (> 60.0)
[2023-09-28] MEDS ORDERED: HumaLOG 300 UNITS/3 ML VIAL SC PRN (12:45)
[2023-09-29] MEDS: Ipratropium/Albuterol 3 ML NEB NEB SCH ×4 (00:41→18:47)
[2023-09-29] MEDS: Doxycycline 100 MG CAP PO SCH ×2 (02:28→14:54)
[2023-09-29 05:33] LABS: Hematocrit 44.6 % (42.0-52.0); Hemoglobin 14.5 g/dL (14.0-18.0); Platelet Count 272 10x3/uL (130-400)
[2023-09-29 06:24] LABS: Anion Gap 15 mmol/L (10-20); BUN (Urea Nitrogen) 25 mg/dL (8.4-25.7); Calc. Creatinine Clearance 51 mL/min (70-130); Calcium 9.7 mg/dL (7.8-10.44); Carbon Dioxide 27 mmol/L (23-31); Chloride 99 mmol/L (98-107); Estimated GFR 71; Glucose 302 mg/dL (83-110); Potassium 4.2 mmol/L (3.5-5.1); Sodium 137 mmol/L (136-145)
[2023-09-29] MEDS: HumaLOG 300 UNITS/3 ML VIAL SC PRN ×4 (07:07→21:17)
[2023-09-29] MEDS: Budesonide 0.5 MG/2 ML NEB NEB SCH ×2 (07:18→18:49)
[2023-09-29] MEDS: Insulin Glargine 30 UNITS/0.3 ML VIAL SC SCH ×2 (08:36→20:56)
[2023-09-29] MEDS: Metoprolol Tartrate 25 MG TAB PO SCH ×2 (08:36→20:58)
[2023-09-29] MEDS: Piperacillin/Tazobactam 3.375 GM in Sodium Chloride 0.9% 100 ML IVPB SCH (08:36)
[2023-09-29] MEDS: Digoxin 0.125 MG TAB PO SCH (08:36)
[2023-09-29] MEDS: dilTIAZem CD 180 MG CAP PO SCH (08:36)
[2023-09-29] MEDS: methylPREDNISolone Sod Succ 40 MG VIAL IVP SCH ×2 (08:37→20:56)
[2023-09-29] MEDS: Rivaroxaban 10 MG TAB PO SCH (09:13)
[2023-09-29] MEDS ORDERED: hydrALAZINE 10 MG TAB PO PRN (13:14)
[2023-09-29] MEDS ORDERED: hydrOXYzine 10 MG TAB PO PRN (13:24)
[2023-09-29] MEDS: cefTRIAXone\\ROCEPHIN 1 GM in Sodium Chloride 0.9% 100 ML IVPB SCH (14:54)
[2023-09-29 14:57] VITALS: BMI 24.5
[2023-09-29] MEDS: Melatonin 3 MG TAB PO PRN (21:58)
[2023-09-29] MEDS: dilTIAZem 125 MG in Sodium Chloride 0.9% 100 ML IVPB SCH (22:00)
[2023-09-30] MEDS: Ipratropium/Albuterol 3 ML NEB NEB SCH ×5 (00:19→23:45)
[2023-09-30] MEDS: Doxycycline 100 MG CAP PO SCH ×2 (01:54→16:37)
[2023-09-30 05:10] LABS: Anion Gap 14 mmol/L (10-20); BUN (Urea Nitrogen) 21 mg/dL (8.4-25.7); Calc. Creatinine Clearance 63 mL/min (70-130); Calcium 9.5 mg/dL (7.8-10.44); Carbon Dioxide 28 mmol/L (23-31); Chloride 102 mmol/L (98-107); Estimated GFR 84; Glucose 152 mg/dL (83-110); Sodium 140 mmol/L (136-145)
[2023-09-30] MEDS: HumaLOG 300 UNITS/3 ML VIAL SC PRN ×4 (06:49→20:24)
[2023-09-30] MEDS: Budesonide 0.5 MG/2 ML NEB NEB SCH ×2 (07:07→18:56)
[2023-09-30] MEDS: Digoxin 0.125 MG TAB PO SCH (08:16)
[2023-09-30] MEDS: dilTIAZem CD 180 MG CAP PO SCH (08:16)
[2023-09-30] MEDS: Insulin Glargine 30 UNITS/0.3 ML VIAL SC SCH (08:16)
[2023-09-30] MEDS: methylPREDNISolone Sod Succ 40 MG VIAL IVP SCH (08:16)
[2023-09-30] MEDS: Metoprolol Tartrate 25 MG TAB PO SCH ×2 (08:17→20:20)
[2023-09-30] MEDS: Rivaroxaban 10 MG TAB PO SCH (08:44)
[2023-09-30] MEDS: Acetaminophen 325 MG TAB PO PRN (08:44)
[2023-09-30] MEDS: cefTRIAXone\\ROCEPHIN 1 GM in Sodium Chloride 0.9% 100 ML IVPB SCH (16:37)
[2023-09-30] MEDS: Benzonatate 100 MG CAP PO PRN ×2 (16:37→22:42)
[2023-10-01] MEDS: Doxycycline 100 MG CAP PO SCH ×2 (01:12→13:10)
[2023-10-01 05:31] LABS: Anion Gap 11 mmol/L (10-20); BUN (Urea Nitrogen) 29 mg/dL (8.4-25.7); Calc. Creatinine Clearance 50 mL/min (70-130); Calcium 9.2 mg/dL (7.8-10.44); Carbon Dioxide 29 mmol/L (23-31); Chloride 100 mmol/L (98-107); Estimated GFR 71; Glucose 239 mg/dL (83-110); Potassium 4.4 mmol/L (3.5-5.1); Sodium 136 mmol/L (136-145)
[2023-10-01] MEDS: HumaLOG 300 UNITS/3 ML VIAL SC PRN ×4 (05:51→21:03)
[2023-10-01] MEDS: Ipratropium/Albuterol 3 ML NEB NEB SCH ×4 (07:32→22:17)
[2023-10-01] MEDS: Budesonide 0.5 MG/2 ML NEB NEB SCH ×2 (07:34→19:00)
[2023-10-01] MEDS: predniSONE 20 MG TAB PO SCH (08:57)
[2023-10-01] MEDS: dilTIAZem CD 180 MG CAP PO SCH (08:57)
[2023-10-01] MEDS: Digoxin 0.125 MG TAB PO SCH (08:57)
[2023-10-01] MEDS: Rivaroxaban 10 MG TAB PO SCH (08:57)
[2023-10-01] MEDS: Metoprolol Tartrate 25 MG TAB PO SCH ×2 (08:58→20:07)
[2023-10-01] MEDS: Benzonatate 100 MG CAP PO PRN (09:01)
[2023-10-01] MEDS: cefTRIAXone\\ROCEPHIN 1 GM in Sodium Chloride 0.9% 100 ML IVPB SCH (13:10)
[2023-10-01] MEDS ORDERED: Insulin Glargine 30 UNITS/0.3 ML VIAL SC SCH (14:00)
[2023-10-01] MEDS: Acetaminophen 325 MG TAB PO PRN (18:39)
[2023-10-01] MEDS: dilTIAZem 125 MG in Sodium Chloride 0.9% 100 ML IVPB SCH (18:40)
[2023-10-02] MEDS: Doxycycline 100 MG CAP PO SCH ×2 (01:31→13:56)
[2023-10-02 05:26] LABS: Hemoglobin 16.5 g/dL (14.0-18.0); Platelet Count 267 10x3/uL (130-400)
[2023-10-02 06:01] LABS: Anion Gap 12 mmol/L (10-20); BUN (Urea Nitrogen) 28 mg/dL (8.4-25.7); Calc. Creatinine Clearance 55 mL/min (70-130); Calcium 9.5 mg/dL (7.8-10.44); Carbon Dioxide 29 mmol/L (23-31); Chloride 100 mmol/L (98-107); Estimated GFR 74; Glucose 220 mg/dL (83-110); Potassium 4.4 mmol/L (3.5-5.1); Sodium 137 mmol/L (136-145)
[2023-10-02] MEDS: HumaLOG 300 UNITS/3 ML VIAL SC PRN ×4 (06:01→20:22)
[2023-10-02] MEDS: Budesonide 0.5 MG/2 ML NEB NEB SCH ×2 (07:31→18:15)
[2023-10-02] MEDS: Ipratropium/Albuterol 3 ML NEB NEB SCH ×4 (07:33→22:15)
[2023-10-02] MEDS: Digoxin 0.125 MG TAB PO SCH (08:50)
[2023-10-02] MEDS: Metoprolol Tartrate 25 MG TAB PO SCH ×2 (08:50→20:21)
[2023-10-02] MEDS: dilTIAZem CD 180 MG CAP PO SCH (08:50)
[2023-10-02] MEDS: predniSONE 20 MG TAB PO SCH (08:50)
[2023-10-02] MEDS: Insulin Glargine 30 UNITS/0.3 ML VIAL SC SCH (08:50)
[2023-10-02] MEDS ORDERED: Furosemide 20 MG (2 mL) VIAL SLOW IVP SCH (13:15)
[2023-10-02] MEDS: cefTRIAXone\\ROCEPHIN 1 GM in Sodium Chloride 0.9% 100 ML IVPB SCH (13:55)
[2023-10-02] MEDS: Acetaminophen 325 MG TAB PO PRN (14:04)
[2023-10-02] MEDS: Rivaroxaban 10 MG TAB PO SCH (15:56)
[2023-10-03 04:17] LABS: Anion Gap 14 mmol/L (10-20); BUN (Urea Nitrogen) 32 mg/dL (8.4-25.7); Calc. Creatinine Clearance 42 mL/min (70-130); Calcium 8.9 mg/dL (7.8-10.44); Carbon Dioxide 23 mmol/L (23-31); Chloride 97 mmol/L (98-107); Estimated GFR 54; Potassium 5.2 mmol/L (3.5-5.1); Sodium 129 mmol/L (136-145)
[2023-10-03 04:24] LABS: Glucose 414 mg/dL (83-110)
[2023-10-03] MEDS: HumaLOG 300 UNITS/3 ML VIAL SC PRN ×4 (04:40→20:46)
[2023-10-03] MEDS: Ipratropium/Albuterol 3 ML NEB NEB SCH ×4 (07:51→23:30)
[2023-10-03] MEDS: Budesonide 0.5 MG/2 ML NEB NEB SCH ×2 (07:53→18:19)
[2023-10-03] MEDS ORDERED: predniSONE 20 MG TAB PO SCH (08:00)
[2023-10-03] MEDS: Digoxin 0.125 MG TAB PO SCH (08:11)
[2023-10-03] MEDS: Metoprolol Tartrate 25 MG TAB PO SCH ×2 (08:12→20:40)
[2023-10-03] MEDS: Insulin Glargine 30 UNITS/0.3 ML VIAL SC SCH (08:12)
[2023-10-03] MEDS: dilTIAZem CD 180 MG CAP PO SCH (08:12)
[2023-10-03] MEDS ORDERED: Insulin Glargine 30 UNITS/0.3 ML VIAL SC SCH (08:45)
[2023-10-03] MEDS ORDERED: LOKELMA 5 GM PACKET PO SCH (09:00)
[2023-10-03] MEDS: Rivaroxaban 10 MG TAB PO SCH (16:56)
[2023-10-03] MEDS: Melatonin 3 MG TAB PO PRN (20:40)
[2023-10-04 03:11] VITALS: BP 118/71; TEMP 98.1
[2023-10-04 05:18] LABS: Hematocrit 50.5 % (42.0-52.0); Hemoglobin 16.2 g/dL (14.0-18.0); Manual Diff?? YES; Mean Corpuscular HGB CONC 32.1 g/dL (32.0-36.0); Mean Corpuscular Hemoglobin 27.1 pg (27.0-31.0); Mean Corpuscular Volume 84.4 fl (78.0-98.0); Mean Platelet Volume 10.9 fL (7.4-10.4); Platelet Count 241 10x3/uL (130-400); RBC Distribution Width 13.6 % (11.5-14.5); Red Blood Cell (RBC) Count 5.98 mill/uL (4.70-6.10); White Blood Cell (WBC) Count 10.6 10x3/uL (4.8-10.8)
[2023-10-04 05:25] LABS: Delete Auto Diff?? YES
[2023-10-04 05:43] LABS: Anion Gap 9 mmol/L (10-20); BUN (Urea Nitrogen) 27 mg/dL (8.4-25.7); Calc. Creatinine Clearance 52 mL/min (70-130); Calcium 9.7 mg/dL (7.8-10.44); Carbon Dioxide 35 mmol/L (23-31); Chloride 97 mmol/L (98-107); Estimated GFR 72; Glucose 181 mg/dL (83-110); Potassium 4.2 mmol/L (3.5-5.1); Sodium 137 mmol/L (136-145)
[2023-10-04] MEDS: HumaLOG 300 UNITS/3 ML VIAL SC PRN (05:50)
[2023-10-04 06:23] LABS: Band 3 % (5-11); CellaVision Operator ID lab.sh2; Large Platelets 5.9 % (0-5); Lymphocytes 17 % (21-51); Monocytes 8 % (0-10); Neutrophil 73 % (42-75); Platelet Adequacy Comment Platelets Normal; Polychromasia SLIGHT = 2-3 cells HPF (0-2); Smudge Cells 8.8 %; Total Cell Count 102
[2023-10-04] MEDS: Budesonide 0.5 MG/2 ML NEB NEB SCH (07:46)
[2023-10-04] MEDS: Ipratropium/Albuterol 3 ML NEB NEB SCH (07:46)
[2023-10-04] MEDS: Metoprolol Tartrate 25 MG TAB PO SCH (08:44)
[2023-10-04] MEDS: dilTIAZem CD 180 MG CAP PO SCH (08:44)
[2023-10-04] MEDS: Digoxin 0.125 MG TAB PO SCH (08:44)
[2023-10-04] MEDS: Insulin Glargine 30 UNITS/0.3 ML VIAL SC SCH (08:45)
== END 2023-10-04 11:12 | disposition home health service (06) | DRG 871 ==
LOC: ERS 21:53 → ERHOLD 23:50 → 2NO 09-22 00:51 → IMCU/EMU 09-26 00:32 → 2NO 10-03 20:26
PROVIDERS: ADMIT Internal Medicine; ATTEND Internal Medicine
PROC: 3E03329 Introduction of Other Anti-infective into Peripheral Vein, Percutaneous Approach (ICD-10-PCS; 2023-09-21)
PROC: 4A133R1 Monitoring of Arterial Saturation, Peripheral, Percutaneous Approach (ICD-10-PCS; principal; 2023-09-25)
PROC: 5A0945A Assistance with Respiratory Ventilation, 24-96 Consecutive Hours, High Flow/Velocity Cannula (ICD-10-PCS; 2023-09-26)
DX: A41.9 Sepsis, unspecified organism (principal); J18.9 Pneumonia, unspecified organism; J96.01 Acute respiratory failure with hypoxia; J45.901 Unspecified asthma with (acute) exacerbation; I48.19 Other persistent atrial fibrillation; R65.20 Severe sepsis without septic shock; I10 Essential (primary) hypertension; J45.909 Unspecified asthma, uncomplicated; E87.5 Hyperkalemia; E11.65 Type 2 diabetes mellitus with hyperglycemia; Z79.899 Other long term (current) drug therapy; Z79.4 Long term (current) use of insulin
CPT/HCPCS: 36415; 36416; 71045; 71275; 80048; 80053; 80162; 81001; 82805; 83036; 83605; 83735; 83880; 84145; 84484; 85014; 85018; 85025; 85049; 87040; 87449; 87633; 87899; 93005; 94640; 96365; 96366; 96367; 96375; J0692; J0696; J1815; J1940; J2405; J2543; J2920; J2930; J3490; J7512; J7620; J7626; Q9967

== ENCOUNTER 2023-10-28 14:41 | Outpatient (CLI) | payer MEDICARE, OTHER | END 2023-10-28 14:42 | disposition home or self-care (01) | LOC: RAD 14:41 | PROVIDERS: ATTEND Physician Assistant | DX: R05.1 Acute cough (principal); J18.9 Pneumonia, unspecified organism | CPT/HCPCS: 71046 ==